=== PATIENT | male | born 1975 | race Caucasian/White ===

== ENCOUNTER → 2017-04-25 | Outpatient (CLI) | payer MEDICAID, SELFPAY | PROVIDERS: Visit Provider Internal Medicine Adolescent Medicine | DX: R55 Syncope and collapse (principal); M79.2 Neuralgia and neuritis, unspecified | CPT/HCPCS: 70551; 72070; 72110 ==

== ENCOUNTER 2017-05-13 15:51 | Outpatient (RCR) | payer MEDICAID, SELFPAY ==
--- NOTE | 2017-05-13 17:14 | HMH.PTOPEV ---
Rehab Outpatient Evaluation Rehab OP Evaluation Start: 05/13/17 16:46 Freq: Status: Active Protocol: Document 05/13/17 16:46 STACIE (Rec: 05/13/17 17:10 STACIE [id number]) Electronically Signed By Jordyn Luis, PT 05/13/17 16:46 Outpatient Therapy Subjective History Subjective History This is a 41 YO male referred to PT due to lumbar & thoracic pain. Pt states he has had pain for many years but he states the pain is getting worse & now his legs are going numb. 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 During this evaluation he C/ O pain also down right UE to hand & neck pain. He states he is falling with increasing frequency Chief Complaint Pain Spasms Stiff Symptom Type Ache Sharp Numbness Symptoms Relieved By Nothing Symptoms Aggravated By Prone Supine Sitting Standing Bending/Stooping Physical Activity Twisting Walking Lifting Current Functional Limitations Reaching Lifting Housework Desk Work/Reading Driving Sleeping Standing Sitting Squatting Recreation Activity Walking Stairs Balance Bending/Stooping Symptom Description Constant but Variable Pain at Rest Activity Dependent Level of pain today (0-10) 5 Pain scale - at its best (0-10) 8 Pain scale - at its worst (0-10) 8 Lumbopelvic Eval Posture Thoracic Spine Posture Standing Position Neutral Lumbar Spine Posture Standing Position Neutral Assistive device Assistive Devices None / NA Gait Observation General Gait Pattern
== END 2017-05-13 17:00 ==
LOC: PT 15:51
PROVIDERS: Family Provider Internal Medicine Adolescent Medicine; Visit Provider Internal Medicine Adolescent Medicine
DX: M54.16 Radiculopathy, lumbar region (principal); M79.2 Neuralgia and neuritis, unspecified

== ENCOUNTER → 2017-07-22 07:34 | Outpatient (CLI) | payer MEDICAID, SELFPAY ==
--- NOTE | 2017-07-22 07:40 | XR_ITS ---
XR shoulder RT min 2V HISTORY: Right shoulder pain ITS.REASON: ROTATOR CUFF SYNDROME ORDERING PHYSICIAN: Rylie Connors PATIENT AGE: 42 years COMPARISON: None FINDINGS: No fracture or dislocation. No lytic or blastic change. There is normal mineralization. The joint spaces are well-preserved. No significant degenerative/arthritic changes. No erosive changes evident. No significant subacromial stenosis IMPRESSION: Negative, no acute finding
== END ==
PROVIDERS: PCP Internal Medicine Adolescent Medicine; Visit Provider Nurse Practitioner Family
DX: M75.101 Unspecified rotator cuff tear or rupture of right shoulder, not specified as traumatic (principal)
CPT/HCPCS: 73030

== ENCOUNTER → 2017-12-08 07:18 | Outpatient (CLI) | payer MEDICAID, SELFPAY ==
[2017-12-08 13:46] LABS: Alanine Aminotransferase 93 U/L (12-78); Albumin/Globulin Ratio 1.3 (1.1-1.8); Alkaline Phosphatase 91 U/L (46-116); Anion Gap 11.1 mEq/L (5-15); Aspartate Amino Transferase 24 U/L (15-37); Bilirubin,Total 0.7 mg/dL (0.2-1.0); Blood Urea Nitrogen 16 mg/dL (7-18); Calcium 9.4 mg/dL (8.5-10.1); Carbon Dioxide 31 mmol/L (21.0-32.0); Chloride 105 mmol/L (98-107); Estimated Glomerular Filt Rate 82 ml/min (>60); GFR (African American) 99 ML/MIN (>60); Globulin 3.1 gm/dl (1.3-3.2); Glucose 123 mg/dL (74-106); Potassium 4.1 mmoL/L (3.5-5.1); Sodium 143 mmol/L (136-145); Total Protein,Serum 7.1 gm/dL (6.4-8.2)
[2017-12-08 13:53] LABS: Hemoglobin A1C 5.4 % (0.0-7.0)
== END ==
PROVIDERS: Visit Provider Internal Medicine Adolescent Medicine
DX: I10 Essential (primary) hypertension (principal); R73.9 Hyperglycemia, unspecified
CPT/HCPCS: 36415; 80053; 83036

== ENCOUNTER → 2018-01-07 07:24 | Outpatient (CLI) | payer MEDICAID, SELFPAY ==
--- NOTE | 2018-01-07 07:48 | MR_ITS ---
MR head/brain wo con HISTORY: Memory loss, imbalance, left arm numbness and tingling ITS.REASON: TIA, NEUROPATHY OF LEFT UPPER EXTREMITY ORDERING PHYSICIAN: Ziggy Cheek MD PATIENT AGE: 42 years Comparison: 04/25/2017 TECHNIQUE: Standard multiplanar multiecho sequences are performed without contrast. FINDINGS: No midline shift, mass effect, intracranial hemorrhage, hydrocephalus, or acute cortical infarction. The cerebellopontine angles, cerebellum, and brainstem are unremarkable. There is mild tortuosity of the left vertebral artery causing some mild deformity upon the left aspect of the brainstem. This is nonspecific and not significantly changed and is of questionable clinical significance. No large aneurysms. There is normal rich-white matter differentiation. There is a small T2 white matter hyperintensity in the subcortical region of the left parietal lobe nonspecific. No other T2 white matter hyperintensities are evident. The hippocampal gyri are unremarkable and the temporal horns are symmetric. Lateral ventricles are slightly prominent but unchanged. No mastoid effusion or sinus air-fluid level. IMPRESSION: 1. No acute intracranial findings. 2. Ectasia of the left vertebral artery causing some mild flattening of the brainstem on the left. This is of uncertain clinical significance. 3. No change in the minimal prominence of the lateral ventricles
== END ==
PROVIDERS: Family Provider Internal Medicine Adolescent Medicine; PCP Internal Medicine Adolescent Medicine; Visit Provider Internal Medicine Adolescent Medicine
DX: G45.9 Transient cerebral ischemic attack, unspecified (principal); G56.92 Unspecified mononeuropathy of left upper limb
CPT/HCPCS: 70551

== ENCOUNTER → 2018-11-17 08:36 | Outpatient (CLI) | payer BC, SELFPAY ==
--- NOTE | 2018-11-17 08:41 | US_ITS ---
US abdomen limited History:Right upper quadrant pain Ordering Physician:Rylie Connors APRN Patient Age: 43 years Comparison:None Findings: Pancreas:Unremarkable. No obvious mass or abnormal fluid collection. No ductal dilatation Liver:Unremarkable. No obvious mass or abnormal fluid collection. No ductal dilatation Right Kidney:Unremarkable. Normal size and echogenicity. No hydronephrosis Gallbladder:No gallstones, gallbladder wall thickening, pericholecystic fluid, or biliary dilatation. Impression:Negative gallbladder/right upper quadrant ultrasound
== END ==
PROVIDERS: PCP Internal Medicine Adolescent Medicine; Visit Provider Nurse Practitioner Family
DX: R10.11 Right upper quadrant pain (principal); R10.811 Right upper quadrant abdominal tenderness
CPT/HCPCS: 76705

== ENCOUNTER 2020-11-20 01:37 | Emergency (ER) | payer BC, SELFPAY ==
[2020-11-20 01:39] VITALS: BP 178/116; PULSE 86; RESP 16; TEMP 36.9; O2SAT 96; BMI 35.5
--- NOTE | 2020-11-20 01:56 | ECG_ITS ---
APPROVED REPORT Exam: Resting ECG HR:69 bpm ECG Measurements Heart Rate 69 AXES IA 126 P 54 QRSd 86 QRS 70 QT 364 T 74 QTc 390 Conclusion Normal sinus rhythm Nonspecific T wave abnormality Abnormal ECG Electronically signed by : Ziggy Cheek, 11/20/2020 22:10:41
--- NOTE | 2020-11-20 01:56 | XR_ITS ---
PROCEDURE INFORMATION: Exam: XR Chest Exam date and time: 11/20/2020 1:56 AM Age: 45 years old Clinical indication: Shortness of breath; Patient HX: SOA and some pain in back TECHNIQUE: Imaging protocol: XR of the chest. Views: 2 views. COMPARISON: CR SHOULDCMRT XR shoulder RT min 2V 07/22/2017 7:41 AM FINDINGS: Lungs: Unremarkable. No consolidation. Pleural spaces: Unremarkable. No pleural effusion. No pneumothorax. Heart/Mediastinum: Unremarkable. No cardiomegaly. Bones/joints: Unremarkable. IMPRESSION: No acute findings.
[2020-11-20 02:00] VITALS: BP 161/104; PULSE 77; RESP 22; O2SAT 96
--- NOTE | 2020-11-20 02:03 | HMH.EDSOB ---
ED Disposition Clinical Impression: Chest pain Qualifiers: Chest pain type: unspecified Qualified Code(s): R07.9 - Chest pain, unspecified HTN (hypertension) Qualifiers: Hypertension type: primary hypertension Qualified Code(s): I10 - Essential (primary) hypertension Disposition: Home, Self-Care Condition on Discharge: Good Instructions: DI for Shortness of Breath Additional Instructions: see pcp for follow up and bp control Referrals: Ziggy Cheek MD [Primary Care Provider] - - Critical Care Critical Care Time: No Attestation: On 11/20/20, the high probability of a clinically significant, sudden or life threatening deterioration of the following system(s) required my full and direct attention, intervention and personal management. The time I documented below is in addition to time spent performing reported procedures but includes the following listed in this critical care notation. Medical Decision Making - Medical Records Medical records reviewed: Yes: I reviewed the patient's medical records. - Abhay Inquiry Pt receiving controlled substance: No Vital Signs: 11/20/20 01:39 Temperature 98.5 F Temperature Source Oral Pulse Rate [Apical] 86 Respiratory Rate 16 Blood Pressure [Right Arm] 178/116 H Blood Pressure Mean [Right Arm] 136 Blood Pressure Source [Right Arm] Manual Cuff/ Auscultation Blood Pressure Position [Right Arm] Sitting 02 Sat by Pulse Oximetry 96 Oxygen Delivery Method Room Air - Lab Data Lab results reviewed: Yes: I reviewed the patient's lab results. Lab Results 11/20/20 01:50: WBC 9.8, RBC 5.37, Hgb 16.4, Hct 46.9, MCV 87.4, MCH 30.5, MCHC 34.9, RDW 13.8, Plt Count 243, MPV 8.8, Neut % (Auto) 61.5, Lymph % (Auto) 30.4, Calloway % (Auto) 5.1, Eos % (Auto) 2.2, Baso % (Auto) 0.8, Neut # (Auto) 6.0, Lymph # (Auto) 3.0, Calloway # (Auto) 0.5, Eos # (Auto) 0.2, Baso # (Auto) 0.1 11/20/20 01:50: Sodium 143, Potassium 3.7, Chloride 104, Carbon Dioxide 29, Anion Gap 13.7, BUN 7 L, Creatinine 0.90, Estimated Creat Clear 146, Estimated GFR 91, Est GFR ( Amer) 110, Glucose 167 H, Calcium 9.2, Total Bilirubin 0.7, Direct Bilirubin 0.5 H, Conjugated Bilirubin 0.0, Indirect Bilirubin 0.2, Unconjugated Bilirubin 0.2, AST 41, ALT 78, Alkaline Phosphatase 87, Troponin I < 0.01, C-Reactive Protein 5.3 H, Total Protein 7.7, Albumin 4.6 11/20/20 01:50: ESR 7 11/20/20 01:50: Procalcitonin 0.172 Result diagrams: 11/20/20 01:50 11/20/20 01:50 Orders (Tests/Meds): ED MEDICATIONS Generic Name Dose Route Start Last Admin Trade Name Freq PRN Reason Stop Dose Admin Sodium Chloride 1,000 mls @ 999 mls/hr 11/20/20 02:00 11/20/20 02:06 Sod Chlor 0.9% 1000ml Bag IV 11/20/20 03:00 999 mls/hr .Q1H1M KAMILA Administration Discontinued Medications Generic Name Dose Route Start Last Admin Trade Name Freq PRN Reason Stop Dose Admin Ketorolac Tromethamine 30 mg 11/20/20 01:56 11/20/20 02:05 Ketorolac 30mg/Ml Vial IV 11/20/20 01:57 30 mg ONCE ONE Administration Methylprednisolone Sodium Succinate 125 mg 11/20/20 01:56 11/20/20 02:06 Methylprednisolone Sod Succ 125mg Vial IV 11/20/20 01:57 125 mg ONCE ONE Administration ORDERS Category Date Time Status Troponin I Q3H Lab 11/20/20 05:00 Ordered Troponin I Q3H Lab 11/20/20 08:00 Ordered - Radiology Data #1 Image(s): Chest Image Reviewed: Yes I reviewed the patient's radiology image Preliminary Findings: Normal/NAD - ECG Data Tracing #1 Normal Sinus Rhythm: Yes Ischemic changes: non-specific ST-T wave changes - KEILA Score for Non-Stemi Age of Patient: 40-49 years old Heart Rate: 70-89 bpm Systolic Blood Pressure: 160-199 mmHg Serum Creatinine: 0.80-1.19 mg/dl CHF Killip Class: I-No CHF Other Risk Factors: None Non-Stemi Risk Score: 51 Medical Decision Narrative: pt with neg work-up at this time - has lt upper pain - after iv contrast - has htn but off meds we discussed need to see
--- NOTE | 2020-11-20 02:04 | PC.NURSE ---
Pt to rad
[2020-11-20 02:07] LABS: Basophils # 0.1 K/mm3 (0-0.2); Basophils % 0.8 % (0.1-2.0); Eosinophils # 0.2 K/mm3 (0.0-0.4); Eosinophils % 2.2 % (0.1-12.0); Hematocrit 46.9 % (42.0-52.0); Hemoglobin 16.4 g/dL (14.1-18.0); Lymphocytes % 30.4 % (10-50); Mean Corpuscular HGB Conc 34.9 g/dL (31.8-35.4); Mean Corpuscular Hemoglobin 30.5 pg (27.0-31.2); Mean Corpuscular Volume 87.4 fl (80-94); Mean Platelet Volume 8.8 fl (7.4-10.4); Monocytes # 0.5 K/mm3 (0.1-1.0); Monocytes % 5.1 % (1.7-9.3); Neutrophils % 61.5 % (37.0-80.0); Platelet Count 243 K/mm3 (142-424); Red Blood Count 5.37 M/mm3 (4.60-6.20); Red Cell Distribution Width 13.8 % (11.5-17.5); White Blood Count 9.8 K/mm3 (4.8-10.8)
--- NOTE | 2020-11-20 02:08 | PC.NURSE ---
Pt returned from rad
[2020-11-20 02:15] LABS: Alanine Aminotransferase 78 U/L (12-78); Anion Gap 13.7 mEq/L (5-15); Aspartate Amino Transferase 41 U/L (17-59); Bilirubin,Direct 0.5 mg/dl (0.0-0.4); Bilirubin,Indirect 0.2 mg/dL (0.0-0.9); Bilirubin,Total 0.7 mg/dl (0.2-1.3); Bilirubin,Unconjugated 0.2 mg/dL (0.0-1.1); Blood Urea Nitrogen 7 mg/dl (9-20); Calcium 9.2 mg/dl (8.4-10.2); Carbon Dioxide 29 mmol/L (22.0-30.0); Chloride 104 mmol/L (98-107); Creatinine Clearance Estimated 146 mL/min (50-200); Estimated Glomerular Filt Rate 91 ml/min (>60); GFR (African American) 110 ML/MIN (>60); Glucose 167 mg/dl (74-100); Potassium 3.7 mmoL/L (3.5-5.1); Sodium 143 mmol/L (136-145)
[2020-11-20 02:16] LABS: Albumin Level 4.6 g/dl (3.5-5.0); Alkaline Phosphatase 87 U/L (38-126); Total Protein,Serum 7.7 g/dl (6.3-8.2)
[2020-11-20 02:21] LABS: C-Reactive Protein 5.3 mg/L (0-4)
--- NOTE | 2020-11-20 02:25 | PC.NURSE ---
Pt to rad
[2020-11-20 02:30] LABS: Troponin I < 0.01 ng/ml (0.00-0.034)
[2020-11-20 02:35] LABS: Procalcitonin 0.172 ng/mL (0.0-2.0)
[2020-11-20 02:38] LABS: Erythrocyte Sedimentation Rate 7 mm/hr (0-15)
--- NOTE | 2020-11-20 02:44 | PC.NURSE ---
Radiology contacted ER to request new IV on pt. This RN went to assess LAC PIV and found it to flush well, although tender to palpation surrounding insertion site. No redness or cooling above the site. Pt refused to be stuck again for new IV. Pt made aware reason for CTA and that we needed IV access for this scan to r/o PE's. Pt demanded this RN remove LAC IV. He was instructed he could not receive IV medication if needed. Pt stated his understanding. LAC PIV was removed.
[2020-11-20 03:14] VITALS: BP 171/100; PULSE 81; RESP 18; TEMP 36.7; O2SAT 98
== END 2020-11-20 03:19 | disposition home or self-care (01) ==
PROVIDERS: Emergency Provider Emergency Medicine; PCP Internal Medicine Adolescent Medicine
DX: R07.9 Chest pain, unspecified (principal); I10 Essential (primary) hypertension; K21.9 Gastro-esophageal reflux disease without esophagitis; Z79.899 Other long term (current) drug therapy
CPT/HCPCS: 71046; 80048; 80076; 84145; 84484; 85025; 85651; 86140; 93005; 96365; 96375; 99283

== ENCOUNTER 2021-07-06 13:20 | Emergency (ER) | payer BC, SELFPAY ==
[2021-07-06 13:25] VITALS: BP 166/111; PULSE 93; RESP 18; TEMP 36.4; O2SAT 97; BMI 35.3
--- NOTE | 2021-07-06 13:48 | HMH.EDUTC ---
[facility] [place] Disposition Clinical Impression: HTN (hypertension) Qualifiers: Hypertension type: unspecified Qualified Code(s): I10 - Essential (primary) hypertension Disposition: Left Against Medical Advice Condition on Discharge: Fair Referrals: Provider,Referral, [Primary Care Provider] - As needed Time of Disposition: 14:02 Medical Decision Making - Abhay Inquiry Pt receiving controlled substance: No Abhay was queried for this patient: No Vital Signs: 07/06/21 13:25 Temperature 97.5 F L Temperature Source Oral Pulse Rate [Left Brachial] 93 H Respiratory Rate 18 Blood Pressure [Left Arm] 166/111 H Blood Pressure Mean [Left Arm] 129 Blood Pressure Source [Left Arm] Automatic Cuff Blood Pressure Position [Left Arm] Sitting 02 Sat by Pulse Oximetry 97 Oxygen Delivery Method Room Air Medical Decision Narrative: Due to patient complaints and blood pressure being elevated with symptoms and reports of disorientation at times recommended transfer to the ED for further evaluation and treatment and patient refused transfer, discussed risks even with patient and he still refused patient educated that due to symptoms he was having along with elevated blood pressure he could have a stroke even and patient still refused Patient alert and oriented at this time states he will go to his PCP and sit in the office to be seen patient educated that will blood pressure elevated like it is with symptoms may still recommended transfer and he still declined transfer Spoke with Cardiology Clinic and they advised to send patient to the clinic and they would evaluate him and patient refused that also State that he would call Dr Sr office and go up there he did not want to go to the clinic or the ED he would just leave and sign out AMA [facility] [place] HPI - General Stated complaint: elevated BP, dizziness, RICHARDS Time Seen by Provider: 07/06/21 13:48 Mode of Arrival: Ambulatory Source of Information: Patient Limitations: No Limitations Description of Symptoms (Recalled from Triage Doc. by RN): PATIENT REPORTS THAT HIS BLOOD PRESSURE HAS BEEN ELEVATED AT HOME, AND HAS BEEN HAVING DIZZINESS, HEADACHE, AND OCCASIONAL DISORIENTATION. DENIES A HISTORY OF HYPERTENSION HEENT Symptoms (Recalled from RN notes): No Resp Symptoms (Recalled from RN notes): No Skin Symptoms (Recalled from RN notes): No MS Symptoms (Recalled from RN notes): No Functional Status (Recalled from RN notes): WNL - History of Present Illness Provider Complaint: Patient state that he has been having blood pressure problems States that he has been watching it at home and it has been elevated States that he has been having headache, dizziness and blurry vision at times along with episodes of feeling disoriented State that today it was still elevated and he was having symptoms so he came in - Related Data Home Medications Medication Instructions Recorded Confirmed pantoprazole 20 mg tablet,delayed 20 mg PO ONCE 12/03/17 07/06/18 release Allergies Allergy/AdvReac Type Severity Reaction Status Date / Time No Known Allergies Allergy Verified 07/06/18 15:42 - Worker's Comp Is this a Worker's Comp case?: No [facility] History - Hepatitis A Screen Drug use history?: No High risk sexual behaviors?: No History of sexually transmitted infection?: No Currently employed?: No Childcare worker?: No Do you have indoor plumbing?: Yes Do you have electricity?: Yes Attestation statement:: This patient has been screened for Hepatitis A risk factors. I have reviewed the patient's past medical history: Yes Medical History: Reports:: Gastroesophageal Reflux Disease(GERD) Amputation: No Comment: rotator cuff (left), 2 hernia repair surgeries - Social History Smoking Status: Never smoker Alcohol Intake: never Occupational Status: employed Housing: house Household Members: family Family Hx:: Cancer, Diabetes ROS Obtained: Yes All systems reviewed & no additional complai
[2021-07-06 13:50] VITALS: BP 166/111; PULSE 93; RESP 18; TEMP 36.4; O2SAT 97
== END 2021-07-06 13:53 | disposition left against medical advice (07) ==
LOC: UTC 13:21
PROVIDERS: Emergency Provider Nurse Practitioner
DX: R42 Dizziness and giddiness; I10 Essential (primary) hypertension; H53.8 Other visual disturbances; R51.9 Headache, unspecified; K21.9 Gastro-esophageal reflux disease without esophagitis; Z83.3 Family history of diabetes mellitus; Z79.899 Other long term (current) drug therapy; Z80.9 Family history of malignant neoplasm, unspecified
CPT/HCPCS: 99213; G0463

== ENCOUNTER → 2022-01-10 06:17 | Outpatient (CLI) | payer BC, SELFPAY ==
[2022-01-10 18:39] LABS: Basophils # 0.1 K/mm3 (0-0.2); Basophils % 0.7 % (0.1-2.0); Eosinophils # 0.4 K/mm3 (0.0-0.4); Hematocrit 45.4 % (42.0-52.0); Hemoglobin 15.7 g/dL (14.1-18.0); Lymphocytes # 2.6 K/mm3 (0.7-4.5); Lymphocytes % 23.7 % (10-50); Mean Corpuscular HGB Conc 34.7 g/dL (31.8-35.4); Mean Corpuscular Hemoglobin 31.5 pg (27.0-31.2); Mean Corpuscular Volume 90.8 fl (80-94); Monocytes # 0.7 K/mm3 (0.1-1.0); Monocytes % 6.1 % (1.7-9.3); Neutrophils % 65.4 % (37.0-80.0); Platelet Count 336 K/mm3 (142-424); Red Cell Distribution Width 13.1 % (11.5-17.5); White Blood Count 10.7 K/mm3 (4.8-10.8)
[2022-01-10 18:42] LABS: Blood Urea Nitrogen 16 mg/dl (9-20); Calcium 9.4 mg/dl (8.4-10.2); Carbon Dioxide 28 mmol/L (22.0-30.0); Estimated Glomerular Filt Rate 91 ml/min (>60); GFR (African American) 110 ML/MIN (>60); Glucose 95 mg/dl (74-100); Sodium 140 mmol/L (136-145)
[2022-01-10 18:47] LABS: Chloride 102 mmol/L (98-107)
== END ==
PROVIDERS: PCP Internal Medicine Adolescent Medicine; Visit Provider Internal Medicine Adolescent Medicine
DX: R55 Syncope and collapse (principal); K62.5 Hemorrhage of anus and rectum
CPT/HCPCS: 80048; 85025

== ENCOUNTER → 2022-01-16 08:41 | Outpatient (CLI) | payer BC, SELFPAY ==
[2022-01-16 10:18] LABS: Hemoglobin A1C 6.4 % (4.0-6.0)
[2022-01-16 10:29] LABS: Chloride 106 mmol/L (98-107); Potassium 4.6 mmoL/L (3.5-5.1); Sodium 142 mmol/L (136-145)
[2022-01-16 10:32] LABS: Alanine Aminotransferase 63 U/L (12-78); Albumin Level 4.6 g/dl (3.5-5.0); Albumin/Globulin Ratio 1.7 (1.1-1.8); Alkaline Phosphatase 76 U/L (38-126); Anion Gap 12.6 mEq/L (5-15); Aspartate Amino Transferase 48 U/L (17-59); Bilirubin,Total 0.7 mg/dl (0.2-1.3); Blood Urea Nitrogen 15 mg/dl (9-20); Calcium 8.9 mg/dl (8.4-10.2); Carbon Dioxide 28 mmol/L (22.0-30.0); Estimated Glomerular Filt Rate 91 ml/min (>60); GFR (African American) 110 ML/MIN (>60); Globulin 2.7 g/dL (1.3-3.2); Glucose 109 mg/dl (74-100); Total Protein,Serum 7.3 g/dl (6.3-8.2)
== END ==
PROVIDERS: PCP Internal Medicine Adolescent Medicine; Visit Provider Internal Medicine Adolescent Medicine
DX: E11.9 Type 2 diabetes mellitus without complications (principal); K76.0 Fatty (change of) liver, not elsewhere classified; Z79.84 Long term (current) use of oral hypoglycemic drugs
CPT/HCPCS: 36415; 80053; 83036

== ENCOUNTER → 2022-02-04 09:28 | Outpatient (CLI) | payer BC, SELFPAY | PROVIDERS: PCP Internal Medicine Adolescent Medicine; Visit Provider Internal Medicine | DX: Z01.818 Encounter for other preprocedural examination (principal); Z20.822 Contact with and (suspected) exposure to COVID-19; Z12.11 Encounter for screening for malignant neoplasm of colon | CPT/HCPCS: C9803; U0003; U0005 ==

== ENCOUNTER 2022-02-06 08:42 | Day surgery (SDC) | payer BC, SELFPAY ==
[2022-02-04 10:54] VITALS: BMI 34.5
[2022-02-06 09:05] VITALS: BP 147/92; PULSE 73; RESP 18; TEMP 36.2; O2SAT 97
--- NOTE | 2022-02-06 09:24 | P.PN_ITS ---
[facility] Medical History Gauthier esophagus Diabetes mellitus Diabetes mellitus, type 2 Enlarged prostate Hemorrhoid History of back pain History of gastroesophageal reflux (GERD) HTN (hypertension) Hyperlipidemia Normal colonoscopy Scarring of lung Surgical History H/O hernia repair S/P shoulder surgery Family History Father Diabetes Hyperlipidemia Cancer Hypertension Grandfather Family history of prostate cancer Mother Family history of breast cancer Family/Other Family history of breast cancer Social History Smoking Status: Never smoker second hand exposure: No alcohol intake: never substance use type: denies use current occupational status: employed Travel in the last 8 weeks: None household members: family housing: house marital status: [facility] Anesthesia Checklist Patient Identification Patient Identification: Arm Band and Verbal (Name & ) Structural Data Admitted From: Home Planned Operative Procedure/s: Colonoscopy Consent for Planned Operative Procedure(s) Verified: Yes NPO Status Verified Time NPO: 06:30 (Prep) Chart Verification Results Verified: CBC and BMP Airway Assessment C-Spine Mobility Assessed: Yes TMJ Mobility Assessed: Yes Dentition: Good Dentition Neurological Assessment Level of Consciousness: Awake Hx Seizures: No Numbness or tingling in extremities: No Anesthesia Plan Anesthesia Risk discussed: Yes Anesthesia Plan: Verified ASA Class: III Anesthesia Type: MAC
[2022-02-06 09:25] LABS: POC Glucose,Bedside 96 (70-110)
[2022-02-06 10:22] VITALS: O2SAT 97
--- NOTE | 2022-02-06 10:55 | HMH.SCOPE ---
Procedure: Date: 02/06/22 Patient Date of :: 1975 Procedure Performed:: Colonoscopy Indications:: The patient is a 46 year old who presents for colonoscopy for a positive cologaurd test Performing Provider:: Gary Benitez MD Referring Provider:: Ziggy Cheek MD Sedation:: See RN records Procedure:: After placing the patient in the left lateral decubitus position, the colonoscopy was gently inserted into the rectum and under direct visualization advanced to the cecum which was identified by transillumination in the right lower quadrant, identification of the ileocecal valve, appendiceal orifice, and cecal strap. Color, texture, mucosa, and anatomy of the colon were carefully examined with the scope. Findings:: Anal canal: normal Rectum: Internal hemorrhoids Sigmoid colon: Sessile polyp 5 mm in size. Removed with cold snare polypectomy. Fair preparation Descending colon: Three polyps between 5-8 mm in size. Removed with cold snrae polypectomy. Fair preparation Splenic flexure: normal Transverse colon: normal without polyps or inflammatory changes Hepatic flexure: normal Ascending colon: Sessile polyp 7-8 mm in size. Removed with cold snare polypectomy Cecum: Diffusely spreading adenomatous appearing polyp lesion approximately 2 cm in size. Biopsies obtained Terminal ileum: not visualized Impression: Multiple polyps Diffusely spread adenomatous appearing polyp of the cecum Recommendations:: Await pathology results Will discuss surgical evaluation vs referral to advanced endoscopist for larger ceal polyp Complications:: None Estimated blood obtained (mL): 0
[2022-02-06 10:58] VITALS: BP 116/64; PULSE 91; RESP 17; TEMP 36.1; O2SAT 94
[2022-02-06 11:08] VITALS: BP 111/62; PULSE 78; RESP 18; O2SAT 95
[2022-02-06 11:18] VITALS: BP 110/68; PULSE 73; RESP 17; O2SAT 97
[2022-02-06 11:28] VITALS: BP 117/67; PULSE 72; RESP 18; O2SAT 98
== END 2022-02-06 11:28 | disposition home or self-care (01) ==
PROVIDERS: PCP Internal Medicine Adolescent Medicine; Visit Provider Internal Medicine
PROC: 0DJD8ZZ Inspection of Lower Intestinal Tract, Via Natural or Artificial Opening Endoscopic (ICD-10-PCS; CPT 45378; principal; 2022-02-06 10:00)
DX: R19.5 Other fecal abnormalities (principal); K63.5 Polyp of colon; Z79.899 Other long term (current) drug therapy; E11.9 Type 2 diabetes mellitus without complications
CPT/HCPCS: 45385; 45380; 82962; 88305; J2704

== ENCOUNTER → 2022-03-13 10:24 | Outpatient (CLI) | payer BC, SELFPAY ==
--- NOTE | 2022-03-13 10:28 | FL_ITS ---
FINAL REPORT CLINICAL HISTORY: dysphagia 50 second fluoro time FINDINGS: MODIFIED BARIUM SWALLOW History: Dysphagia. FINDINGS: Fluoroscopy was provided for the speech pathologist to evaluate the swallowing mechanism. The patient was given several different consistencies of barium while the swallow was visualized fluoroscopically. The report of the speech pathologist should be consulted prior to making dietary decisions. FLUOROSCOPY TIME: 50 seconds. 10 cine runs were obtained. IMPRESSION: Modified barium swallow under fluoroscopic guidance. Please see the report of the speech pathologist for more detail. Films reviewed , interpreted and dictated by Dr. Esquivel. Transcribed by Damien Roy PA-C. Reviewed, Interpreted and Dictated by Guilherme Esquivel MD Transcribed by RAE Weaver Authenticated and . [facility]
--- NOTE | 2022-03-13 11:24 | HMH.SLMBS2 ---
Speech & Language Evaluation Speech/Language Mod Barium Swallow Start: 03/13/22 11:04 Freq: once Status: Complete Protocol: Document 03/13/22 11:04 PHOENIXISIDOR (Rec: 03/13/22 11:24 DILIA [id number]) General Information General Current Food Consistency Regular,Thin Liquids Dentition Good Dentition Oxygen Status Room Air Facial Symmetry Symmetrical Patient Orientation Person,Place,Time,Situation Ability to Follow Directions Excellent Communication Ability No Impairment MBS Recommendations Diet Dietary Recommendations Regular,Thin Liquids Treatment/Strategies Strategy/Precaution Recommend Sitting Upright (90 deg),Small Bites and Sips,Alternate Liquids/Solids Referrals/Other Recommended Referrals GI Consult Mod Barium Swallow Impressions Summary and Impressions Oral Phase Impression No Impairment (WFL) Oral Phase Summary Oral phase is WFL. Adequate mastication of all solid consistencies, and adequate oral manipulation of puree. Functional oral transit time. No oral residue was noted with any consistency trialed. Pharyngeal Phase Impression No Impairment (WFL) Pharyngeal Phase Summary Pharyngeal phase is WFL. No aspiration or penetration was noted with any consistency trialed. Swallow was timely with no significant pharyngeal residue, despite pt reporting mechanical soft feeling like it was stuck. Sensation improved with thin liquid wash . Pharyngeal structures are all WNL. No pharyngeal weakness noted. Given hx of Gauthier's esophagus, pt would benefit from GI consult to determine if esophageal dysphagia is present lower in the esophagus. To increase comfort and decrease sensation of material sticking, pt would benefit from alternating bites and sips as well as taking small bites and sips. Speech/Language MBS Assessment/Goals/Plan Assessment Date of Evaluation: 03/13/22 Evaluation Type Initial Certification Assessment/Problems
== END ==
LOC: RAD 10:24
PROVIDERS: PCP Internal Medicine Adolescent Medicine; Visit Provider Internal Medicine Adolescent Medicine
DX: R13.13 Dysphagia, pharyngeal phase (principal)
CPT/HCPCS: 70371; 92611

== ENCOUNTER → 2022-03-22 10:46 | Outpatient (CLI) | payer BC, SELFPAY ==
--- NOTE | 2022-03-22 10:49 | XR_ITS ---
FINAL REPORT TECHNIQUE: Chest PA & Lateral CLINICAL HISTORY: TUBULAR ADENOMA OF COLON, pre op, htn COMPARISON: 11/20/2020 FINDINGS: 2 views of the chest were performed. The heart size is normal. The mediastinum is within normal limits. There is no acute cardiopulmonary process. There are no pleural effusions. There is no pneumothorax. The bony thorax appears intact. IMPRESSION: No acute cardiopulmonary process. Reviewed, Interpreted and Dictated by Guilherme Esquivel MD Transcribed by Sera Pruitt Authenticated and [facility]
--- NOTE | 2022-03-22 10:49 | CT_ITS ---
FINAL REPORT CLINICAL HISTORY: TUBULAR ADENOMA OF COLON. FINDINGS: The lung bases are clear. The liver is moderately fatty infiltrated. The gallbladder is present. The spleen is unremarkable. The adrenals are normal. The pancreas is unremarkable. The kidneys enhance appropriately. Precontrast images demonstrate no nephrolithiasis. There is abnormal mucosal thickening of the distal sigmoid colon and rectum which may be due to infectious or inflammatory colitis. The urinary bladder is unremarkable. IMPRESSION: Abnormal mucosal thickening of the distal sigmoid colon and rectum may be due to colitis. This may be infectious or inflammatory. Reviewed, Interpreted and Dictated by Guilherme Esquivel MD Transcribed by RAE Miller Authenticated and [facility]
[2022-03-22 11:42] LABS: Blood Urea Nitrogen 13 mg/dl (9-20); Estimated Glomerular Filt Rate 72 ml/min (>60); GFR (African American) 87 ML/MIN (>60)
== END ==
LOC: RAD 10:46
PROVIDERS: PCP Internal Medicine Adolescent Medicine; Visit Provider Internal Medicine Adolescent Medicine
DX: D12.6 Benign neoplasm of colon, unspecified (principal)
CPT/HCPCS: 36415; 71046; 74178; 82565; 84520; Q9967

== ENCOUNTER → 2022-03-29 08:21 | Outpatient (CLI) | payer BC, SELFPAY | PROVIDERS: PCP Internal Medicine Adolescent Medicine; Visit Provider Surgery | DX: Z01.812 Encounter for preprocedural laboratory examination (principal); Z20.822 Contact with and (suspected) exposure to COVID-19 | CPT/HCPCS: C9803; U0003; U0005 ==

== ENCOUNTER 2022-05-16 09:30 | Day surgery (SDC) | payer BC, SELFPAY ==
[2022-05-16] VITALS (7 sets, daily range): BP systolic 118–137; BP diastolic 65–92; PULSE 84–101; RESP 16–18; TEMP 36.2–36.3; O2SAT 95–99; BMI 35.2
[2022-05-16 09:56] LABS: POC Glucose,Bedside 132 (70-110)
--- NOTE | 2022-05-16 10:46 | HMH.SCOPE ---
Procedure: Date: 05/16/22 Patient Date of :: 1975 Procedure Performed:: EGD & biopsies with bougie dilation Indications:: History of Barretts esophagus and dysphagia symptoms Performing Provider:: Rubi Mcdaniel MD Referring Provider:: Ziggy Cheek Sedation:: Propofol Procedure:: The gastroscope was gently passed through the incisoral orifice into the oral cavity and under direct visualization the esophagus was intubated. The endoscope was passed down the esophagus, through the stomach, and into the duodenum. Color, texture, mucosa, and anatomy of the esophagus, stomach, and duodenum were carefully examined with the scope. Findings:: Oropharynx: normal Esophagus: normal with evidence of barretts mucosa seen in distal esophagus without inflammatory changes. multiple biopsies obtained dysphagia treated with several passes of the 58F bougie dilator EG Junction: intact at 40 cm Cardia: normal Fundus: normal Body: normal Antrum: normal Duodenal bulb: normal Duodenum (second and third portion): normal Impression: Gauthier's mucosa Symptomatic dysphagia treated with bougie dilation Specimens:: esophagus Recommendations:: repeat EGD and biopsies in about THREE years or so, sooner if clinically indicated Complications:: None Estimated blood obtained (mL): 0
--- NOTE | 2022-05-16 10:50 | EXP.ANES.CKL ---
[facility] Disclaimer: The information contained in this section may have been updated after the patient was seen, as this information can be updated by other users. Medical History Gauthier esophagus Diabetes mellitus Diabetes mellitus, type 2 Enlarged prostate Hemorrhoid History of back pain History of gastroesophageal reflux (GERD) HTN (hypertension) Hyperlipidemia Normal colonoscopy Scarring of lung Surgical History H/O hernia repair S/P shoulder surgery Family History Father Diabetes Hyperlipidemia Cancer Hypertension Grandfather Family history of prostate cancer Mother Family history of breast cancer Family/Other Family history of breast cancer Social History Smoking Status: Never smoker second hand exposure: No alcohol intake: never substance use type: denies use current occupational status: employed Travel in the last 8 weeks: None household members: family housing: house lives independently: Yes marital status: special robin needs: No agree to transfusion: No do you feel safe at home: Yes victim of physical abuse: No victim of emotional abuse: No victim of sexual abuse: No would you like helpful sources: No [facility] Anesthesia Checklist Patient Identification Patient Identification: Verbal (Name & ) Structural Data Admitted From: Home Planned Operative Procedure/s: egd Consent for Planned Operative Procedure(s) Verified: Yes Airway Assessment C-Spine Mobility Assessed: Yes TMJ Mobility Assessed: Yes Dentition: Good Dentition Neurological Assessment Level of Consciousness: Awake, Alert and Appropriate Anesthesia Plan Anesthesia Risk discussed: Yes Anesthesia Plan: Verified ASA Class: II Anesthesia Type: MAC
== END 2022-05-16 11:35 | disposition home or self-care (01) ==
PROVIDERS: PCP Internal Medicine Adolescent Medicine; Visit Provider Internal Medicine Gastroenterology
PROC: 0DJ08ZZ Inspection of Upper Intestinal Tract, Via Natural or Artificial Opening Endoscopic (ICD-10-PCS; CPT 43235; principal; 2022-05-16 11:00)
DX: K22.70 Barrett's esophagus without dysplasia (principal); R13.10 Dysphagia, unspecified; E11.9 Type 2 diabetes mellitus without complications; Z79.899 Other long term (current) drug therapy
CPT/HCPCS: 43239; 43248; 82962; 88305

== ENCOUNTER 2022-11-11 08:34 | Emergency (ER) | payer BC, SELFPAY ==
[2022-11-11 08:37] VITALS: BP 167/110; PULSE 77; RESP 18; TEMP 37; O2SAT 99; BMI 34.7
--- NOTE | 2022-11-11 08:47 | EXP.UTC ---
Discharge Plan Disposition Patient Disposition: Home, Self-Care Prescriptions Prescriptions: No Action metformin 500 mg tablet 500 mg PO BID atorvastatin 10 mg tablet 10 mg PO DAILY lisinopril 10 mg tablet 10 mg PO DAILY pantoprazole [Protonix] 40 mg Tablet,Delayed Release (Dr/Ec) 40 mg PO DAILY Referrals Follow up/Referrals: Ziggy Cheek MD [Primary Care Provider] - See instructions Activity Restrictions/Add. Instructions Additional Instructions/Restrictions: Follow-up with Dr. Dorantes this week. Otherwise return the emergency department for any worsening pain vomiting or any other concerns within the next 8 hours Clinical Impressions Clinical Impression: Abdominal pain, acute, right upper quadrant Instructions Patient Instructions: DI for Acute Abdominal Pain Discharge ED Provider: Sascha Elmore [facility] [place] <Jens Juarez APRN - Last Filed: 11/21/22 20:10> General Chief complaint: Abdominal Pain Stated complaint: Sharp pain on right side, headaches Time Seen by Provider: 11/11/22 08:47 Related Data Home Medications Medication Instructions Recorded Confirmed atorvastatin 10 mg tablet 10 mg PO DAILY Cholesterol 01/10/22 05/16/22 metformin 500 mg tablet 500 mg PO BID Diabetes 01/10/22 05/10/22 lisinopril 10 mg tablet 10 mg PO DAILY BP 02/04/22 05/16/22 pantoprazole 40 mg tablet,delayed 40 mg PO DAILY GERD 05/16/22 05/16/22 release (Protonix) Allergies Allergy/AdvReac Type Severity Reaction Status Date / Time No Known Allergies Allergy Verified 05/16/22 09:46 <Sascha Elmore MD - Last Filed: 11/11/22 10:55> History of Present Illness Provider Complaint: 47-year-old male presents with right upper quadrant pain. He is in no acute distress nontoxic-appearing he presented initially to the urgent care side of [facility] and then was transferred over to the emergency department side. On my exam he has mild tenderness no nausea vomiting diarrhea fevers chest pain shortness of air. Has been going on for a few hours dull pain nonradiating [facility] <Jens Juarez APRN - Last Filed: 11/21/22 20:10> [facility] Disclaimer: The information contained in this section may have been updated after the patient was seen, as this information can be updated by other users. Medical History Gauthier esophagus Diabetes mellitus Diabetes mellitus, type 2 Enlarged prostate Hemorrhoid History of back pain History of gastroesophageal reflux (GERD) HTN (hypertension) Hyperlipidemia Normal colonoscopy Scarring of lung Surgical History H/O hernia repair S/P shoulder surgery Family History Father Diabetes Hyperlipidemia Cancer Hypertension Grandfather Family history of prostate cancer Mother Family history of breast cancer Family/Other Family history of breast cancer Social History Smoking Status: Never smoker second hand exposure: No alcohol intake: never substance use type: denies use current occupational status: employed Travel in the last 8 weeks: None household members: family housing: house lives independently: Yes marital status: special robin needs: No agree to transfusion: No do you feel safe at home: Yes victim of physical abuse: No victim of emotional abuse: No victim of sexual abuse: No would you like helpful sources: No <Sascha Elmore MD - Last Filed: 11/11/22 10:55> ROS Obtained: Yes All systems reviewed & no additional complaints except as documented Constitutional Constitutional: Denies fatigue, Denies fever(s) and Denies headache(s) Eyes Eyes: Denies floaters ENT Ears, Nose, Mouth, and Throat: Denies headache(s) and Denies hearing loss Cardiovascular Cardiovascular: Denies dyspnea Respiratory Resp
[2022-11-11 09:27] LABS: Microscopic, Urine URINE MICROSCOPIC (MICROSCOPIC)
[2022-11-11 09:45] VITALS: BP 167/108; PULSE 70; RESP 18; TEMP 36.7; O2SAT 98; BMI 34.7
[2022-11-11 09:48] LABS: Appearance,Urine CLEAR (Clear); Bilirubin,Urine Negative (Negative); Blood, Urine Negative (Negative); Color,Urine YELLOW (Yellow); Glucose,Urine (UA) Negative (Negative); Ketones,Urine Negative (Negative); Leukocyte Esterase,Urine Negative (Negative); Nitrate,Urine Negative (Negative); PH,Urine 7.5 (5.0-8.5); Protein,Urine Negative (Negative); Urobilinogen,Urine 0.2 EU/dl (0.2)
--- NOTE | 2022-11-11 09:51 | PC.NURSE ---
DR. MEJIA AT BEDSIDE
--- NOTE | 2022-11-11 09:53 | US_ITS ---
FINAL REPORT CLINICAL HISTORY: RUQ pain COMPARISON: None FINDINGS: Sonographic images of the right upper quadrant were obtained. The pancreas is partially obscured. There is increased echogenicity of the liver parenchyma, compatible with fatty infiltration of the liver. The gallbladder appears normal without evidence of gallstones.There is no evidence of biliary ductal dilatation.The common duct measures 2 mm. Limited images of the right kidney are unremarkable. IMPRESSION: Fatty infiltration of the liver. Otherwise unremarkable right upper quadrant ultrasound. Reviewed, Interpreted and Dictated by Brooks Moscoso III, MD Transcribed by Carole Mallory Authenticated and [facility][1]
[2022-11-11 10:00] VITALS: BP 167/98; PULSE 70; RESP 18; O2SAT 98
[2022-11-11 10:13] LABS: Basophils % 0.4 % (0.1-2.0); Eosinophils # 0.1 K/mm3 (0.0-0.4); Eosinophils % 1.4 % (0.1-12.0); Hematocrit 49.3 % (42.0-52.0); Hemoglobin 16.3 g/dL (14.1-18.0); Lymphocytes # 2.5 K/mm3 (0.7-4.5); Lymphocytes % 24.3 % (10-50); Mean Corpuscular Hemoglobin 29.2 pg (27.0-31.2); Mean Corpuscular Volume 88.5 fl (80-94); Mean Platelet Volume 9.6 fl (7.4-10.4); Monocytes # 0.5 K/mm3 (0.1-1.0); Monocytes % 4.5 % (1.7-9.3); Neutrophils # 7.2 K/mm3 (1.8-7.8); Neutrophils % 69.4 % (37.0-80.0); Platelet Count 222 K/mm3 (142-424); Red Blood Count 5.57 M/mm3 (4.60-6.20); Red Cell Distribution Width 13.5 % (11.5-17.5); White Blood Count 10.4 K/mm3 (4.8-10.8)
[2022-11-11 10:35] LABS: Alanine Aminotransferase 58 U/L (12-78); Albumin Level 4.8 g/dl (3.5-5.0); Albumin/Globulin Ratio 1.5 (1.1-1.8); Alkaline Phosphatase 83 U/L (38-126); Anion Gap 10.5 mEq/L (5-15); Aspartate Amino Transferase 50 U/L (17-59); Bilirubin,Total 0.9 mg/dl (0.2-1.3); Blood Urea Nitrogen 10 mg/dl (9-20); Calcium 9.6 mg/dl (8.4-10.2); Carbon Dioxide 31 mmol/L (22.0-30.0); Chloride 105 mmol/L (98-107); Creatinine Clearance Estimated 140 mL/min (50-200); Estimated Glomerular Filt Rate 90 ml/min (>60); GFR (African American) 109 ML/MIN (>60); Globulin 3.1 g/dL (1.3-3.2); Glucose 133 mg/dl (74-100); Lipase 77 U/L (23-300); Potassium 4.5 mmoL/L (3.5-5.1); Sodium 142 mmol/L (136-145); Total Protein,Serum 7.9 g/dl (6.3-8.2)
--- NOTE | 2022-11-11 10:48 | PC.NURSE ---
pt returned from rad.
--- NOTE | 2022-11-11 10:49 | PC.NURSE ---
PT RETURNED FROM US
--- NOTE | 2022-11-11 10:51 | PC.NURSE ---
DR MEJIA AT BEDSIDE TO UPDATE PT ON POC
[2022-11-11 11:00] VITALS: BP 151/91; PULSE 70; RESP 18; TEMP 36.7; O2SAT 98
[2022-11-11 12:04] LABS: Squamous Epithelial Cell,Urine Occasional #/hpf (0-5); WBC,Urine Occasional #/hpf (0-3)
== END 2022-11-11 11:00 | disposition home or self-care (01) ==
LOC: UTC 08:54 → ER 09:44
PROVIDERS: Nurse Practitioner Family; Emergency Provider Emergency Medicine; PCP Internal Medicine Adolescent Medicine
DX: R10.11 Right upper quadrant pain (principal); K22.70 Barrett's esophagus without dysplasia; E11.9 Type 2 diabetes mellitus without complications; N40.0 Benign prostatic hyperplasia without lower urinary tract symptoms; I10 Essential (primary) hypertension; E78.5 Hyperlipidemia, unspecified
CPT/HCPCS: 76705; 80053; 81001; 83690; 85025; 96360; 99283; 99284

== ENCOUNTER → 2023-01-09 08:35 | Outpatient (CLI) | payer BC, SELFPAY ==
--- NOTE | 2023-01-09 09:13 | NM_ITS ---
FINAL REPORT CLINICAL HISTORY: GB SLUDGE rt side abd pain under ribs x 3 weeks with nausea 9:25 am 8.21 [facility] tc choletec 2 mcg of cck pain during cck FINDINGS: Sequential anterior projection images of the abdomen were obtained after the intravenous injection of 5.0 mCi technetium 99m Choletec. There is normal uptake of radiotracer by the liver. The bile ducts are visualized by 5 minutes. Gallbladder activity is seen by 30 minutes. Bowel activity is noted by 10 minutes. After 1 hour, 8.21 ?g of CCK was injected intravenously for calculation of gallbladder ejection fraction. The gallbladder ejection fraction is 70%, which is within normal limits. IMPRESSION: No evidence of cystic duct or bile duct obstruction. Normal gallbladder ejection fraction of 70%. Reviewed, Interpreted and Dictated by Brooks Moscoso III, MD Transcribed by Lisbeth Irene Authenticated and [facility]
== END ==
LOC: RAD 08:35
PROVIDERS: PCP Internal Medicine Adolescent Medicine; Visit Provider Internal Medicine Adolescent Medicine
DX: K82.8 Other specified diseases of gallbladder (principal)
CPT/HCPCS: 78227; A9537; J2805

== ENCOUNTER 2023-12-22 09:27 | Emergency (ER) | payer BC, SELFPAY ==
[2023-12-22 09:45] VITALS: BP 143/89; PULSE 89; RESP 19; TEMP 36.6; O2SAT 96; BMI 34.9
--- NOTE | 2023-12-22 09:51 | XR_ITS ---
FINAL REPORT CLINICAL HISTORY: Left wrist pain COMPARISON: None FINDINGS: LEFT WRIST Three views demonstrate no acute fracture or dislocation. The visualized joint spaces are normally aligned. The soft tissues are unremarkable. IMPRESSION: No acute bony abnormality. Reviewed, Interpreted and Dictated by Guilherme Esquivel MD Transcribed by Jane Echevarria Authenticated and [facility]
--- NOTE | 2023-12-22 09:51 | XR_ITS ---
FINAL REPORT CLINICAL HISTORY: Left hand pain COMPARISON: None FINDINGS: LEFT HAND Three views demonstrate no acute fracture or dislocation. The visualized joint spaces are normally aligned. The soft tissues are unremarkable. IMPRESSION: No acute process. Reviewed, Interpreted and Dictated by Guilherme Esquivel MD Transcribed by Jane Echevarria Authenticated and [facility]
--- NOTE | 2023-12-22 10:00 | EXP.UTC ---
Discharge Plan Disposition Patient Disposition: Home, Self-Care Condition: Good Prescriptions Prescriptions: No Action atorvastatin 10 mg tablet 10 mg PO DAILY Patient Comments: TAKE 1 TABLET BY MOUTH ONCE DAILY omeprazole 20 mg capsule,delayed release(DR/EC) 20 mg PO DAILY Patient Comments: TAKE 1 CAPSULE BY MOUTH TWICE DAILY FOR 90 DAYS lisinopril-hydrochlorothiazide 20-25 mg tablet 1 tab PO DAILY Patient Comments: TAKE 1 TABLET BY MOUTH ONCE DAILY FOR 90 DAYS dapagliflozin propanediol [Farxiga] 10 mg tablet 10 mg PO DAILY Patient Comments: TAKE 1 TABLET BY MOUTH ONCE DAILY Referrals Follow up/Referrals: Ziggy Cheek MD [Primary Care Provider] - See instructions Activity Restrictions/Add. Instructions Additional Instructions/Restrictions: He left after being seen by provider. He refused to wait for x-rays to be read. Clinical Impressions Clinical Impression: Patient left after triage Print Language Print Language: [place] Islander Discharge ED Provider: Jens Juarez [facility] [place] General Stated complaint: ao 12/13, left wrist pain Time Seen by Provider: 12/22/23 09:59 History of Present Illness Provider Complaint: He states that he has had left wrist and forearm pain, tenderness, and swelling since he fell 1 week ago. He denies any other injury. Related Data Home Medications ?Medication ?Instructions ?Recorded ?Confirmed atorvastatin 10 mg tablet 10 mg PO DAILY 12/22/23 12/22/23 dapagliflozin propanediol 10 mg 10 mg PO DAILY 12/22/23 12/22/23 tablet (Farxiga) lisinopril 20 1 tab PO DAILY 12/22/23 12/22/23 mg-hydrochlorothiazide 25 mg tablet omeprazole 20 mg capsule,delayed 20 mg PO DAILY 12/22/23 12/22/23 release Allergies Allergy/AdvReac Type Severity Reaction Status Date / Time No Known Allergies Allergy Verified 05/16/22 09:46 [facility] Disclaimer: The information contained in this section may have been updated after the patient was seen, as this information can be updated by other users. Medical History Gauthier esophagus Diabetes mellitus Diabetes mellitus, type 2 Enlarged prostate Hemorrhoid History of back pain History of gastroesophageal reflux (GERD) HTN (hypertension) Hyperlipidemia Normal colonoscopy Scarring of lung Surgical History H/O hernia repair S/P shoulder surgery Family History Father Diabetes Hyperlipidemia Cancer Hypertension Grandfather Family history of prostate cancer Mother Family history of breast cancer Family/Other Family history of breast cancer Social History Smoking Status: Never smoker second hand exposure: No alcohol intake: never substance use type: denies use current occupational status: employed Travel in the last 8 weeks: None household members: family housing: house lives independently: Yes marital status: special robin needs: No agree to transfusion: No do you feel safe at home: Yes victim of physical abuse: No victim of emotional abuse: No victim of sexual abuse: No would you like helpful sources: No ROS Obtained: Yes All systems reviewed & no additional complaints except as documented Constitutional Constitutional: Denies chills and Denies fever(s) Eyes Eyes: Denies eye discharge ENT Ears, Nose, Mouth, and Throat: Denies dizziness, Denies otalgia and Denies sore throat Cardiovascular Cardiovascular: Denies chest pain Respiratory Respiratory: Denies shortness of breath, Denies chest congestion, Denies cough, Denies stridor and Denies wheezing Gastrointestinal Gastrointestingal: Denies nausea or vomiting Musculoskeletal Musculoskeletal: Reports as per HPI Integumentary/Breasts Skin/Breast: Denies redness, Denies rash and Denies wounds Neurologic Neurologic: Denies dizziness and Denies paresthesias Allergic/Immunologic Allergic/Immunologic: Denies wheezing Physical Exam General General appearance: alert and in no apparent distress Head Head exam: atraumatic, normocephalic and normal inspection Eye Eye exam: Present normal appearance, PERRL and EOMI ENT ENT exam: Present normal exam, normal oropharynx, mucous membranes moist, TM's normal bilaterally and normal external ear exam Neck Neck exam: Present normal inspection, full ROM and trachea midline; Absent meningismus or lymphadenopathy Chest Chest inspection: Present normal inspection and symmetric chest wall rise; Absent tenderness Respiratory Respiratory exam: Present normal lung sounds bilaterally; Absent respiratory distress Cardiovascular Cardiovascular exam: Present regular rate and normal rhythm; Absent JVD Abdominal Exam Abdominal exam: Present soft and normal bowel sounds; Absent distention, tenderness or guarding Extremities Exam Extremities exam: Present normal capillary refill; Absent calf tenderness Expanded Upper Extremity Exam Left: Elbow exam: Present normal inspection and full ROM; Absent tenderness, swelling, abrasion, laceration, ecchymosis, deformity, crepitus, dislocation, erythema, effusion, pain w/ pronation/supination or tenderness over radial head Forearm/Wrist exam: Present full ROM, tenderness and swelling; Absent abrasion, laceration, ecchymosis, deformity, crepitus, dislocation, erythema, tenderness over anatomical snuff box or pain with axial thumb loading Hand exam: Present full ROM and tenderness; Absent swelling, abrasion, laceration, skin avulsion, ecchymosis, deformity, crepitus, dislocation, erythema, amputation, nail avulsion or subungual hematoma Neuromotor exam: Normal wrist extension, thumb opposition, thumb IP flexion, thumb adduction and fingers 2-5 abduction Neurosensory exam: Normal radial nerve, ulnar nerve and median nerve Vascular exam: Normal capillary refill, radial pulse and ulnar pulse Back Exam Back exam: Present normal inspection; Absent tenderness Neurological Exam Neurological exam: Present alert and oriented X3 Psychiatric Psychiatric exam: Present normal affect and normal mood Skin Skin exam: Present warm, dry, intact and normal color Lymphatic Lymphatic Findings: no adenopathy Medical Decision Making Medical Records Medical records reviewed: No I reviewed the patient's medical records. Abhay Inquiry Pt receiving controlled substance: No Orders (Tests/Meds): ORDERS Category Date Time Status Hand XR left minimum 3 views [XR hand LT min 3V] Stat Exams 12/22/23 09:51 Ordered XR wrist LT min 3V Stat Exams 12/22/23 09:51 Ordered Radiology Data #1: Image(s): Wrist Image Reviewed: Yes I reviewed the patient's radiology image and Yes I have reviewed radiologist's interpretation Preliminary Findings: No Fracture Seen [address] [facility] [address] [place] [address] XRay Report Signed Patient: Myles Cleveland MR#: [id number] : 1975 Acct:[id number] Age/Sex: 48 / M ADM Date: 12/22/23 Loc: [facility] Attending Dr: Ordering Physician: Jens Juarez APRN Date of Service: 12/22/23 Procedure(s): XR wrist LT min 3V Accession Number(s): [id number] cc: Ziggy Cheek MD; Guilherme Esquivel MD~ FINAL REPORT CLINICAL HISTORY: Left wrist pain COMPARISON: None FINDINGS: LEFT WRIST Three views demonstrate no acute fracture or dislocation. The visualized joint spaces are normally aligned. The soft tissues are unremarkable. IMPRESSION: No acute bony abnormality. Reviewed, Interpreted and Dictated by Guilherme Esquivel MD Transcribed by Jane Echevarria Authenticated and [facility]: Image(s): Hand Image Reviewed: Yes I reviewed the patient's radiology image and Yes I have reviewed radiologist's interpretation Preliminary Findings: No Fracture Seen [address] [facility] [address] [place] [address] XRay Report Signed Patient: Myles Cleveland MR#: [id number] : 1975 Acct:[id number] Age/Sex: 48 / M ADM Date: 12/22/23 Loc: [facility] Attending Dr: Ordering Physician: Jens Juarez APRN Date of Service: 12/22/23 Procedure(s): XR hand LT min 3V Accession Number(s): [id number] cc: Ziggy Cheek MD; Guilherme Esquivel MD~ FINAL REPORT CLINICAL HISTORY: Left hand pain COMPARISON: None FINDINGS: LEFT HAND Three views demonstrate no acute fracture or dislocation. The visualized joint spaces are normally aligned. The soft tissues are unremarkable. IMPRESSION: No acute process. Reviewed, Interpreted and Dictated by Guilherme Esquivel MD Transcribed by Jane Echevarria Authenticated and [facility]
[2023-12-22 11:00] VITALS: BP 143/89; PULSE 89; RESP 19; TEMP 36.6; O2SAT 96
--- NOTE | 2023-12-22 11:00 | PC.NURSE ---
PATIENT LEFT WITHOUT BEING SEEN AT THIS TIME. PATIENT VERBALIZED FRUSTRATION ABOUT X-RAY RESULTS TAKING TOO LONG
== END 2023-12-22 11:01 | disposition home or self-care (01) ==
PROVIDERS: Emergency Provider Nurse Practitioner Family; PCP Internal Medicine Adolescent Medicine
DX: M25.532 Pain in left wrist (principal); M79.632 Pain in left forearm; W19.XXXA Unspecified fall, initial encounter
CPT/HCPCS: 73110; 73130; 99212; 99213; G0463

== ENCOUNTER 2024-03-17 10:11 | Outpatient (CLI) | payer BC, SELFPAY ==
--- NOTE | 2024-03-17 10:15 | XR_ITS ---
PROCEDURE INFORMATION: Exam: XR Thoracic Spine Exam date and time: 03/17/2024 10:28 AM Age: 48 years old Clinical indication: Pain in thoracic spine; Additional info: Old injury. . Back pain TECHNIQUE: Imaging protocol: Radiologic exam of the thoracic spine. Views: 3 views. COMPARISON: CR XR LUMBAR SPINE MIN 4V 03/17/2024 10:28 AM FINDINGS: Bones/joints: 12 rib-bearing vertebral bodies. Vertebral body heights are maintained. Mild multilevel disc space narrowing. Multilevel spondylosis of the spine. Soft tissues: Unremarkable. IMPRESSION: Mild multilevel degenerative change of the spine.
--- NOTE | 2024-03-17 10:15 | XR_ITS ---
PROCEDURE INFORMATION: Exam: XR Lumbosacral Spine Exam date and time: 03/17/2024 10:28 AM Age: 48 years old Clinical indication: Low back pain TECHNIQUE: Imaging protocol: Radiologic exam of the lumbosacral spine. Views: 4 or 5 views. COMPARISON: CR XR THORACIC SPINE 3V 03/17/2024 10:28 AM FINDINGS: Bones/joints: Five lumbar-type vertebral bodies. Vertebral body heights are maintained. Mild multilevel disc space narrowing. Multilevel spondylosis of the spine. Lower lumbar facet arthropathy. Soft tissues: Unremarkable. IMPRESSION: Mild multilevel degenerative change of the spine.
== END 2024-03-17 23:59 | disposition home or self-care (01) ==
LOC: RAD 10:12
PROVIDERS: PCP Internal Medicine Adolescent Medicine; Visit Provider Internal Medicine Adolescent Medicine
DX: M54.50 Low back pain, unspecified (principal)
CPT/HCPCS: 72072; 72110

== ENCOUNTER 2025-01-05 09:20 | Outpatient (CLI) | payer BC, SELFPAY ==
--- OUTSIDE RECORDS SUMMARY | 2011-04-08 08:00 | XMS_ITS | Continuity of Care Document ---
Author Organization [facility] o Address [address] [place] [address] Phone Care Team Providers Care Sales Leader Name Role Phone Janina TOBIAS, Jayesh Unavailable Unavailable Procedures Procedure Date Office/outpatient visit,[facility] 2010 Advance Directives Directive Yes / No Effective Date File Name No Information Encounters Encounter Description Practice Location Reason(s) For Visit Diagnoses Date Provider Providers Copied on Encounter [facility] [address], [place], [facility], tel:[phone] 00 [facility] No Information Dec-0 1 Janina Jayesh. [address] [place], [place], [id number] . [phone] Office/outpat ient visit,[facility], [facility] [place], [address], tel:[phone] [facility] No Information Dec-0 1 Janina Jayesh. [address] [place], [place], [id number] . tel:[phone] Family History Family Member Type Diagnosis Age At Onset No Information Payers Payer name Insurance type Covered libertarian ID Authoriza tiishan(s) [place] - [id number] Social History Type Description Quantity Date Captured Comments Sex Male Smoking Status No Information Chief Complaint And Reason For Visit No Information Reason For Referral Reason For Referral No Information History Of Present Illness Encounter Date Complaint History Of Prese nt Illness No Information Functional Status Date Functional Assessmen t No Information Instructions Date Instruction Additional Infor mation No Information Assessments Type Assessment Date No Information Patient Care Teams Name Effective Dates (start - stop) Status Members No Information
--- OUTSIDE RECORDS SUMMARY | 2024-11-24 05:15 | XMS_ITS ---
Author Organization [facility] Address [address] [place] [address] Care Team Providers Care Pst Supervisor Name Role Phone Ziggy Cheek Primary Care Provider REASON FOR VISIT 4 month check up Encounters Encounter Location Date Provider Diagnosis [facility] [address] [place], [place] [address] 11/24/2024 Ziggy Cheek Hypertension, essent ial I10 ; Mixed hyperlipidemia E78.2 ; Type 2 diabetes mellitus with other specified complication E11.69 and Healthcare maintenance Z00.00 Assessments Encounter Date Diagnosis (ICD Code) Assessment Notes Treatment Notes Treatment Clinical Notes Section Notes 11/24/2024 Hypertension, essential (ICD-10 - I10) 11/24/2024 Mixed hyperlipidemia (ICD-10 - E78.2) 11/24/2024 Type 2 diabetes mellitus with other specified complication (ICD-10 - E11.69) 11/24/2024 Healthcare maintenance (ICD-10 - Z00.00) Plan Of Treatment No Information Progress Notes * Myles CLEVELAND JrDOB: [birth year] (49 yo M)Acc No.[id number]:11/24/2024 Progress Notes Patient: Jigar JACKSONMyles Jr Provider: Anitra Cheek MD :1975 A ge:49 Y S ex:Male Date:11/24/2024 Address:[facility] [id number] Subjective: * Chief Complaints: * 1 . 4 month check up. * Medical History: Objective: * Vitals: Assessment: * Assessment: 1. H ypertension, essential - I10 (Primary) 2 . M ixed hyperlipidemia - E78.2 3 . T ype 2 diabetes mellitus with other specified complication - E11.69 4 . H ealthcare maintenance - Z00.00 Plan: * Treatment: * * Electronic signature of Ramsey Cheek MD FAAP on 01/05/2025 at 09:37 AM EDT Sign off status: Pending * Provider: Anitra Cheek MD Date: 0 11/24/2024 Generated for Eric elizondo/Patrice/eTchazsmitting on: 0 01/05/2025 09:37 AM EDT
--- OUTSIDE RECORDS SUMMARY | 2024-12-03 05:00 | XMS_ITS ---
Author Organization [facility] Address [address] [place] [address] Care Team Providers Care Integrated Logistics Operations Manager Name Role Phone Ziggy Cheek Primary Care Provider Results Component Value Reference Range Notes LIPID PANEL, STANDARD (7600) Reviewed date:12/07/2024 07:48:21 PM Interpretation: Performing Lab:CB, [employer] [id number], [facility] CenterWzklIS[address] Boris Gonzalez Notes/Report: NON-FASTING; NON-FASTING; NON-FASTING; NON-FASTING FASTING:YES FASTING: YES CHOLESTEROL, TOTAL 136 <200 mg/dL HDL CHOLESTEROL 33 > OR = 40 mg/dL TRIGLYCERIDES 252 <150 mg/dL If a non-fasting specimen was collected, consider repeat triglyceride testing on a fasting specimen if clinically indicated. Junito et al. J. of Clin. Lipidol. 2015;9:129-169. LDL-CHOLESTEROL 70 Reference range: <100 Desirable range <100 mg/dL for primary prevention; <70 mg/dL for patients with CHD or diabetic patients with > or = 2 CHD risk factors. LDL-C is now calculated using the Krystian-Agapito calculation, which is a validated novel method providing better accuracy than the Friedewald equation in the estimation of LDL-C. Krystian SCHULZ et al. LISA. 2013;310(19): 2775-1521 (http://education.CarePayment.com/faq/PIW848) CHOL/HDLC RATIO 4.1 <5.0 (calc) NON HDL CHOLESTEROL 103 <130 mg/dL (calc) For patients with diabetes plus 1 major ASCVD risk factor, treating to a non-HDL-C goal of <100 mg/dL (LDL-C of <70 mg/dL) is considered a therapeutic option. [facility] ([id number]) Reviewed date:12/07/2024 07:48:21 PM Interpretation: Performing Lab:CATHY [employer] [id number] [employer] [facility], [facility] HospitalCodpKD[address] Boris Gonzalez Notes/Report: NON-FASTING; NON-FASTING; NON-FASTING; NON-FASTING FASTING:YES FASTING: YES GLUCOSE 79 65-99 mg/dL Fasting reference interval UREA NITROGEN (BUN) 15 7-25 mg/dL CREATININE 0.97 0.60-1.29 mg/dL EGFR 96 > OR = 60 mL/min/1.73m2 BUN/CREATININE RATIO SEE NOTE: 6-22 (calc) Not Reported: BUN and Creatinine are within reference range. SODIUM 141 135-146 mmol/L POTASSIUM 3.4 3.5-5.3 mmol/L CHLORIDE 100 98-110 mmol/L CARBON DIOXIDE 30 20-32 mmol/L CALCIUM 9.7 8.6-10.3 mg/dL PROTEIN, TOTAL 7.2 6.1-8.1 g/dL ALBUMIN 4.8 3.6-5.1 g/dL GLOBULIN 2.4 1.9-3.7 g/dL (calc) ALBUMIN/GLOBULIN RATIO 2.0 1.0-2.5 (calc) BILIRUBIN, TOTAL 0.9 0.2-1.2 mg/dL ALKALINE PHOSPHATASE 66 36-130 U/L AST 34 10-40 U/L ALT 67 9-46 U/L CBC (INCLUDES DIFF/PLT) (639 9) Reviewed date:12/07/2024 07:48:21 PM Interpretation: Performing Lab:CATHY [employer] [id number] [employer] [facility], [facility] HospitalXjwoGX[address] Boris Gonzalez Notes/Report: NON-FASTING; NON-FASTING; NON-FASTING; NON-FASTING FASTING:YES FASTING: YES WHITE BLOOD CELL COUNT 8.9 3.8-10.8 Thousand/ uL RED BLOOD CELL COUNT 5.21 4.20-5.80 Million/uL HEMOGLOBIN 16.2 13.2-17.1 g/dL HEMATOCRIT 50.0 38.5-50.0 % MCV 96.0 80.0-100.0 fL MCH 31.1 27.0-33.0 pg MCHC 32.4 32.0-36.0 g/dL For adults, a slight decrease in the calculated MCHC value (in the range of 30 to 32 g/dL) is most likely not clinically significant; however, it should be interpreted with caution in correlation with other red cell parameters and the patient's clinical condition. RDW 12.7 11.0-15.0 % PLATELET COUNT 234 140-400 Thousand/uL MPV 11.7 7.5-12.5 fL ABSOLUTE NEUTROPHILS 5927 4553-4462 cells/uL ABSOLUTE LYMPHOCYTES 2305 850-3900 cells/uL ABSOLUTE MONOCYTES 525 200-950 cells/uL ABSOLUTE EOSINOPHILS 80 15-500 cells/uL ABSOLUTE BASOPHILS 62 0-200 cells/uL NEUTROPHILS 66.6 LYMPHOCYTES 25.9 MONOCYTES 5.9 EOSINOPHILS 0.9 BASOPHILS 0.7 HEMOGLOBIN A1c (496) Reviewed date:12/08/2024 08:36:50 AM Interpretation: Performing Lab:CB, [employer] [id number] [facility]te[facility], [facility] CenterLcoxYA[address] Boris Gonzalez Notes/Report: NON-FASTING; NON-FASTING; NON-FASTING; NON-FASTING FASTING:YES FASTING: YES HEMOGLOBIN A1c 7.9 <5.7 % For someone without known diabetes, a hemoglobin A1c value of 6.5% or greater indicates that they may have diabetes and this should be confirmed with a follow-up test. For someone with known diabetes, a value <7% indicates that their diabetes is well controlled and a value greater than or equal to 7% indicates suboptimal control. A1c targets should be individualized based on duration of diabetes, age, comorbid conditions, and other considerations. Currently, no consensus exists regarding use of hemoglobin A1c for diagnosis of diabetes for children. REASON FOR VISIT Lab Order Encounters Encounter Location Date Provider Diagnosis [facility] [address] [facility] [address] [place] [address] 12/03/2024 Ziggy Cheek Nonalcoholic fatty liver disease K76.0 ; Mixed hyperlipidemia E78.2 and Type 2 diabetes mellitus with other specified complication E11.69 Assessments Encounter Date Diagnosis (ICD Code) Assessment Notes Treatment Notes Treatment Clinical Notes Section Notes 12/03/2024 Nonalcoholic fatty liver disease (ICD-10 - K76.0) 12/03/2024 Mixed hyperlipidemia (ICD-10 - E78.2) 12/03/2024 Type 2 diabetes mellitus with other specified complication (ICD-10 - E11.69) Plan Of Treatment No Information Progress Notes * Myles CLEVELAND JrDOB: [birth year] (49 yo M)Acc No.[id number]:12/03/2024 Patient: Myles RIVERO Jr :1975 A ge:49 Y S ex:Male Address:[address] [place] [address] Subjective: * Chief Complaints: * L ab Order * Medical History: * Surgical History: * Hospitalization/Major Diagno stic Procedure: * Medications: Objective: * Vitals: * Physical Examination: Assessment: * Assessment: 1. N onalcoholic fatty liver disease - K76.0 (Primary) 2 . M ixed hyperlipidemia - E78.2 3 . T ype 2 diabetes mellitus with other specified complication - E11.69 Plan: * Treatment: Value Reference Range T RIGLYCERIDES 252 H <150 - mg/dL * C HOLESTEROL, TOTAL 136 <200 - mg/dL * H DL CHOLESTEROL 33 L > OR = 40 - mg/dL * L DL-CHOLESTEROL 70 - mg/dL (calc) * C HOL/HDLC RATIO 4.1 <5.0 - (calc) * N ON HDL CHOLESTEROL 103 <130 - mg/dL (calc) * This lab was reviewed by Hari Cheek on 12/07/2024 at 19:48 PM EDT ?LAB: COMPREHENSIVE METABOLIC PANEL (88237)* Value Reference Range G LUCOSE 79 65-99 - mg/dL * U JACKI NITROGEN (BUN) 15 7-25 - mg/dL * C REATININE 0.97 0.60-1.29 - mg/dL * B UN/CREATININE RATIO SEE NOTE: 6 - (calc) * S ODIUM 141 135-146 - mmol/L * P OTASSIUM 3.4 L 3.5-5.3 - mmol/L * C HLORIDE 100 98-110 - mmol/L * C ARBON DIOXIDE 30 20-32 - mmol/L * C ALCIUM 9.7 8.6-10.3 - mg/dL * P ROTEIN, TOTAL 7.2 6.1-8.1 - g/dL * A LBUMIN 4.8 3.6-5.1 - g/dL * G LOBULIN 2.4 1.9-3.7 - g/dL (calc ) * A LBUMIN/GLOBULIN RATIO 2.0 1.0-2.5 - (calc) * B ILIRUBIN, TOTAL 0.9 0.2-1.2 - mg/dL * A LKALINE PHOSPHATASE 66 36-130 - U/L * A ST 34 10-40 - U/L * A LT 67 H 9-46 - U/L * E GFR 96 > OR = 60 - mL/min/1 .73m2 * This lab was reviewed by Hari Cheek on 12/07/2024 at 19:48 PM EDT ?LAB: CBC (INCLUDES DIFF/PLT) (7570)* Value Reference Range W JOSE BLOOD CELL COUNT 8.9 3.8-10.8 - Thousan d/uL * R ED BLOOD CELL COUNT 5.21 4.20-5.80 - Million/ uL * H EMOGLOBIN 16.2 13.2-17.1 - g/dL * H EMATOCRIT 50.0 38.5-50.0 - % * M CV 96.0 80.0-100.0 - fL * M CH 31.1 27.0-33.0 - pg * M CHC 32.4 32.0-36.0 - g/dL * R DW 12.7 11.0-15.0 - % * P LATELET COUNT 234 140-400 - Thousand/u L * N EUTROPHILS 66.6 - % * A BSOLUTE NEUTROPHILS 5927 7015-2280 - cells/uL * L YMPHOCYTES 25.9 - % * A BSOLUTE LYMPHOCYTES 2305 850-3900 - cells/uL * M ONOCYTES 5.9 - % * A BSOLUTE MONOCYTES 525 200-950 - cells/uL * E OSINOPHILS 0.9 - % * A BSOLUTE EOSINOPHILS 80 15-500 - cells/uL * B ASOPHILS 0.7 - % * A BSOLUTE BASOPHILS 62 0-200 - cells/uL * M PV 11.7 7.5-12.5 - fL * This lab was reviewed by Hari Cheek on 12/07/2024 at 19:48 PM EDT ?LAB: HEMOGLOBIN A1c (496)* This lab was reviewed by Hari Cheek on 12/07/2024 at 19:48 PM EDT 2.?Mixed hyperlipidemia?LAB: LIPID PANEL, STANDARD (7600)* Value Reference Range T RIGLYCERIDES 252 H <150 - mg/dL * C HOLESTEROL, TOTAL 136 <200 - mg/dL * H DL CHOLESTEROL 33 L > OR = 40 - mg/dL * L DL-CHOLESTEROL 70 - mg/dL (calc) * C HOL/HDLC RATIO 4.1 <5.0 - (calc) * N ON HDL CHOLESTEROL 103 <130 - mg/dL (calc) * This lab was reviewed by Hari Cheek on 12/07/2024 at 19:48 PM EDT ?LAB: COMPREHENSIVE METABOLIC PANEL (32161)* Value Reference Range G LUCOSE 79 65-99 - mg/dL * U JACKI NITROGEN (BUN) 15 7-25 - mg/dL * C REATININE 0.97 0.60-1.29 - mg/dL * B UN/CREATININE RATIO SEE NOTE: 6-22 - (calc) * S ODIUM 141 135-146 - mmol/L * P OTASSIUM 3.4 L 3.5-5.3 - mmol/L * C HLORIDE 100 98-110 - mmol/L * C ARBON DIOXIDE 30 20-32 - mmol/L * C ALCIUM 9.7 8.6-10.3 - mg/dL * P ROTEIN, TOTAL 7.2 6.1-8.1 - g/dL * A LBUMIN 4.8 3.6-5.1 - g/dL * G LOBULIN 2.4 1.9-3.7 - g/dL (calc ) * A LBUMIN/GLOBULIN RATIO 2.0 1.0-2.5 - (calc) * B ILIRUBIN, TOTAL 0.9 0.2-1.2 - mg/dL * A LKALINE PHOSPHATASE 66 36-130 - U/L * A ST 34 10-40 - U/L * A LT 67 H 9-46 - U/L * E GFR 96 > OR = 60 - mL/min/1 .73m2 * This lab was reviewed by Hari Cheek on 12/07/2024 at 19:48 PM EDT ?LAB: CBC (INCLUDES DIFF/PLT) (4067)* Value Reference Range W JOSE BLOOD CELL COUNT 8.9 3.8-10.8 - Thousan d/uL * R ED BLOOD CELL COUNT 5.21 4.20-5.80 - Million/ uL * H EMOGLOBIN 16.2 13.2-17.1 - g/dL * H EMATOCRIT 50.0 38.5-50.0 - % * M CV 96.0 80.0-100.0 - fL * M CH 31.1 27.0-33.0 - pg * M CHC 32.4 32.0-36.0 - g/dL * R DW 12.7 11.0-15.0 - % * P LATELET COUNT 234 140-400 - Thousand/u L * N EUTROPHILS 66.6 - % * A BSOLUTE NEUTROPHILS 5927 8069-7213 - cells/uL * L YMPHOCYTES 25.9 - % * A BSOLUTE LYMPHOCYTES 2305 850-3900 - cells/uL * M ONOCYTES 5.9 - % * A BSOLUTE MONOCYTES 525 200-950 - cells/uL * E OSINOPHILS 0.9 - % * A BSOLUTE EOSINOPHILS 80 15-500 - cells/uL * B ASOPHILS 0.7 - % * A BSOLUTE BASOPHILS 62 0-200 - cells/uL * M PV 11.7 7.5-12.5 - fL * This lab was reviewed by Hari Cheek on 12/07/2024 at 19:48 PM EDT ?LAB: HEMOGLOBIN A1c (496)* This lab was reviewed by Hari Cheek on 12/07/2024 at 19:48 PM EDT 3.?Type 2 diabetes mellitus with other specified complication?LAB: LIPID PANEL, STANDARD (6110)* Value Reference Range T RIGLYCERIDES 252 H <150 - mg/dL * C HOLESTEROL, TOTAL 136 <200 - mg/dL * H DL CHOLESTEROL 33 L > OR = 40 - mg/dL * L DL-CHOLESTEROL 70 - mg/dL (calc) * C HOL/HDLC RATIO 4.1 <5.0 - (calc) * N ON HDL CHOLESTEROL 103 <130 - mg/dL (calc) * This lab was reviewed by Hari Cheek on 12/07/2024 at 19:48 PM EDT ?LAB: COMPREHENSIVE METABOLIC PANEL (68633)* Value Reference Range G LUCOSE 79 65-99 - mg/dL * U JACKI NITROGEN (BUN) 15 7-25 - mg/dL * C REATININE 0.97 0.60-1.29 - mg/dL * B UN/CREATININE RATIO SEE NOTE: 6-22 - (calc) * S ODIUM 141 135-146 - mmol/L * P OTASSIUM 3.4 L 3.5-5.3 - mmol/L * C HLORIDE 100 98-110 - mmol/L * C ARBON DIOXIDE 30 20-32 - mmol/L * C ALCIUM 9.7 8.6-10.3 - mg/dL * P ROTEIN, TOTAL 7.2 6.1-8.1 - g/dL * A LBUMIN 4.8 3.6-5.1 - g/dL * G LOBULIN 2.4 1.9-3.7 - g/dL (calc ) * A LBUMIN/GLOBULIN RATIO 2.0 1.0-2.5 - (calc) * B ILIRUBIN, TOTAL 0.9 0.2-1.2 - mg/dL * A LKALINE PHOSPHATASE 66 36-130 - U/L * A ST 34 10-40 - U/L * A LT 67 H 9-46 - U/L * E GFR 96 > OR = 60 - mL/min/1 .73m2 * This lab was reviewed by Hari Cheek on 12/07/2024 at 19:48 PM EDT ?LAB: CBC (INCLUDES DIFF/PLT) (7659)* Value Reference Range W JOSE BLOOD CELL COUNT 8.9 3.8-10.8 - Thousan d/uL * R ED BLOOD CELL COUNT 5.21 4.20-5.80 - Million/ uL * H EMOGLOBIN 16.2 13.2-17.1 - g/dL * H EMATOCRIT 50.0 38.5-50.0 - % * M CV 96.0 80.0-100.0 - fL * M CH 31.1 27.0-33.0 - pg * M CHC 32.4 32.0-36.0 - g/dL * R DW 12.7 11.0-15.0 - % * P LATELET COUNT 234 140-400 - Thousand/u L * N EUTROPHILS 66.6 - % * A BSOLUTE NEUTROPHILS 5927 2490-2049 - cells/uL * L YMPHOCYTES 25.9 - % * A BSOLUTE LYMPHOCYTES 2305 850-3900 - cells/uL * M ONOCYTES 5.9 - % * A BSOLUTE MONOCYTES 525 200-950 - cells/uL * E OSINOPHILS 0.9 - % * A BSOLUTE EOSINOPHILS 80 15-500 - cells/uL * B ASOPHILS 0.7 - % * A BSOLUTE BASOPHILS 62 0-200 - cells/uL * M PV 11.7 7.5-12.5 - fL * This lab was reviewed by Hari Cheek on 12/07/2024 at 19:48 PM EDT ?LAB: HEMOGLOBIN A1c (496)* This lab was reviewed by Hari Cheek on 12/07/2024 at 19:48 PM EDT * Procedure Codes: * true * Date: Generated for Eric elizondo/Patrice/Sukhi on: 0 01/05/2025 09:37 AM EDT
--- OUTSIDE RECORDS SUMMARY | 2024-12-06 04:00 | XMS_ITS ---
Author Organization [facility] Address [address] [place] [address] Care Team Providers Care Educational Speech Language Clinician Name Role Phone Ziggy Cheek Primary Care Provider REASON FOR VISIT blood draw Encounters Encounter Location Date Provider Diagnosis [facility] [address] [place] [address] 12/06/2024 Ziggy Cheek Plan Of Treatment No Information Progress Notes * Myles CLEVELAND JrDOB: [birth year] (49 yo M)Acc No.[id number]:12/06/2024 LABS Patient: Michael RIVEROanai Johnson Provider: Anitra Cheek MD :1975 A ge:49 Y S ex:Male Date:12/06/2024 Address:[address] [place], [place] [address]ARDMICHANDRACOMMUN[id number] Subjective: * Chief Complaints: * 1 . Blood draw. * Medical History: Objective: * Vitals: Assessment: Plan: * Treatment: * * Electronic signature of Ramsey Cheek MD FAAP on 01/05/2025 at 09:36 AM EDT Sign off status: Pending * Provider: Anitra Cheek MD Date: 12/06/2024 Generated for Printi ng/Faxing/eTransmitting on: 01/05/2025 09:36 AM EDT
--- OUTSIDE RECORDS SUMMARY | 2024-12-08 05:15 | XMS_ITS ---
Author Organization [facility] Address [address] [place] [address] Care Team Providers Care Lead Caster Name Role Phone Ziggy Cheek Primary Care Provider [phone] Allergies No Known Allergies REASON FOR VISIT 4 month check up-discuss labs, still having numbness on lt side and dizzy spells, did not get Farxiga-it was too expensive so he is back on Metformin Medications Medication SIG (Take, Route, Frequency, Duration) Notes Start Date End Date Status Omeprazole 20 MG Take 1 capsule by onel cleveland twice daily; Duration: 90 Active Escitalopram Oxalate 10 MG 1 tablet Oral ly Once a day; Duration: 90 days 12/08/2024 Active Glimepiride 2 MG 1 tab(s) orally once a day; Duration: 90 days Active Aspirin 81 MG 1 tablet Orally Once a day; Duration: 90 days 12/08/2024 Active Atorvastatin Calcium 10 MG 1 tab(s) oral ly once a day; Duration: 30 day(s) Active metFORMIN HCl 500 MG 1 tablet with a blanka l Orally Once a day Active Lisinopril 20 MG 1 tablet Orally Once a day; Duration: 90 days 12/08/2024 Active Problems Problem Type SNOMED Code ICD Code Onset Dates Problem Status W/U Status Risk Notes Problem Generalized anxiety disorder (75174542) FREDERICK (generalized anxiety disorder) (F41.1) Active confirmed Problem Left hemiplegia (011422272) Left hemiplegia (G81.94) Active confirmed Vital Signs Temperature 97.6 degrees Fahrenheit 12/09/19 25 Heart Rate 100 /min 12/08/2024 Blood pressure systolic 102 mm Hg 12/09/19 25 Blood pressure diastolic 80 mm Hg 025 Height 5 ft 6 in in 12/08/2024 Weight 225.2 lbs 12/08/2024 BMI 36.34 kg/m2 12/08/2024 Encounters Encounter Location Date Provider Diagnosis [facility] [address] [place], [place] [address] 12/08/2024 Ziggy Cheek Left-sided muscle weakness M62.81 ; Left hemiplegia G81.94 ; FREDERICK (generalized anxiety disorder) F41.1 ; Hypokalemia E87.6 and Type 2 diabetes mellitus with other specified complication E11.69 Assessments Encounter Date Diagnosis (ICD Code) Assessment Notes Treatment Notes Treatment Clinical Notes Section Notes 12/08/2024 Left-sided muscle weakness (ICD-10 - M62.81) 12/08/2024 Left hemiplegia (ICD-10 - G81.94) Generalized left sided weakness + Left sided sensory loss, concerning for internal capsule stroke. - Reviewed MRI + hospital records which show etasia of L verterbral artery causing compression of Left brain stem. -will order repeat MRI + MRA Head to r/o stroke + worsening brainstem compression + Verterbral Artery stenosis -will start ASA 81 mg today -also has hypotension today -> will stop HCTZ 12/08/2024 FREDERICK (generalized anxiety disorder) (ICD-10 - F41.1) will start lexapro 10 mg today for mood disorder, likely FREDERICK vs MDD 12/08/2024 Hypokalemia (ICD-10 - E87.6) will stop HCTZ and repeat leabs in 4 week 12/08/2024 Type 2 diabetes mellitus with other specified complication (ICD-10 - E11.69) Reviewed labs collect. Elevated A1c to 7.9. Was unable to get Farxiga due to cost (1600 per month), will switch to anothe SGLT2i 12/08/2024 Other Please note this visit was of very high complexity. Reviewed labs from last week that we ordered in preparation for visit, made multiple medication changes, reviewed previous records from [facility], ordered complex neuroimaging and this will require follow-up and further complexity. Plan Of Treatment Medication Medication Name Sig Start Date Stop Date Notes Escitalopram Oxalate 10 MG 1 tablet Oral ly Once a day; Duration: 90 days 12/08/2024 Aspirin 81 MG 1 tablet Orally Once a day; Duration: 90 days 12/08/2024 Lisinopril 20 MG 1 tablet Orally Once a day; Duration: 90 days 12/08/2024 Lisinopril-hydroCHLOROthiazi de 20-25 MG 1/2 tab orally once a day Treatment Notes Assessment Notes Left hemiplegia Generalized left sided weakness + Left sided sensory loss, concerning for internal capsule stroke. - Reviewed MRI + hospital records which show etasia of L verterbral artery causing compression of Left brain stem. -will order repeat MRI + MRA Head to r/o stroke + worsening brainstem compression + Verterbral Artery stenosis -will start ASA 81 mg today -also has hypotension today -> will stop HCTZ FREDERICK (generalized anxiety disorder) will start lexapro 10 mg today for mood disorder, likely FREDERICK vs MDD Hypokalemia will stop HCTZ and r epeat leabs in 4 week Type 2 diabetes mellitus wit h other specified complication Reviewed labs collect. Elevated A1c to 7.9. Was unable to get Farxiga due to cost (1600 per month), will switch to anothe SGLT2i Other Please note this visit was of very high complexity. Reviewed labs from last week that we ordered in preparation for visit, made multiple medication changes, reviewed previous records from [facility], ordered complex neuroimaging and this will require follow-up and further complexity. Pending Test Test Name Order Date MRI : Head 12/08/2024 MRA : Head 12/08/2024 MRV : Head 12/08/2024 Next Appt Details Follow Up: prn,4 Weeks, Reas on: Progress Notes * Myles CLEVELAND JrDOB: [birth year] (49 yo M)Acc No.[id number]:12/08/2024 Progress Notes Patient: Jigar Myles [place] Jr Provider: Anitra Cheek MD :1975 A ge:49 Y S ex:Male Date:12/08/2024 Address:[address] [place] [address] Subjective: * Chief Complaints: * 1 . 4 month check up-discuss labs. 2. Still having numbness on lt side and dizzy spells. 3. did not get Farxiga-it was too expensive so he is back on Metformin. * HPI: mishel dye: Still having dizzy spells, no change, when he gets nervous/overwork ->anxiety, struggles to stay asleep, thinks about work when hes up, not much of an appetitie, doesnt have anything he enjoys doing, Holding left arm, weak, fingers + hand goes numb, left side weaker for the past months, f alls to the left, struggle with speech/speling words, eye twitching in left side, left face weaker, decreased sensation on left side. Dizzy 2-3 times per day, doesnt notice inparticular when he stands up. Room spinning sensation,. * Medical History: B arrett's Esophagus, Positive Cologuard 12/24 - scope 02/23 with multiple tubular adenomas. * Surgical History: h ernia repair x 2 , left shoulder , Colonoscopy . * Hospitalization/Major Diagno stic Procedure: D enies Past Hospitalization. * Family History: F ather: , cancer, diagnosed with Cancer, Hypertension. M other: alive. P aternal Grand Father: . P aternal Grand Mother: . M aternal Grand Father: . M aternal Grand Mother: . P aternal uncle: , prostate cancer, diagnosed with Cancer. S brianna: alive, one brother ; diabetes. C chris: alive. 3 brother(s) . 1 son(s) , 2 daughter(s) - healthy. . father recently diagnosed with esophageal cancer, currently taking chemotherapy- passed. * Social History: S moking A re you a:: nonsmoker. R ecreational drug use: no. Exercise: yes. Home smoke detector use: yes. Caffeine: no. Living Will: No. Alcohol: no. Sexually active: no. Travel outside [place]: no. Occupation: [employer]. denies any ETOH or tobacco. * Medications: T aking metFORMIN HCl 500 MG Tablet 1 tablet with a meal Orally Once a day , Taking Lisinopril-hydroCHLOROthiazide 20-25 MG Tablet 1/2 tab orally once a day , Taking Atorvastatin Calcium 10 MG Tablet 1 tab(s) orally once a day , Taking Glimepiride 2 MG Tablet 1 tab(s) orally once a day , Taking Omeprazole 20 MG Capsule Delayed Release Take 1 capsule by mouth twice daily , Discontinued Meloxicam 15 MG Tablet 1 tab(s) orally once a day , Discontinued Farxiga 10 MG Tablet Take 1 tablet by mouth once daily for 90 days , Medication List reviewed and reconciled with the patient * Allergies: N .K.D.A. Objective: * Vitals: N urse: jl, Pain: 5, Temp: 97.6, RR: 18, HR: 100, BP: 102/80, Ht: 5 ft 6 in, Wt: 225.2, BMI:36.34. * Examination: G eneral Examination: General H olding Left arm, NAD, flat affect.. Heart: R egular Rate and Rhythm, no murmur, rubs or gallops. HEENT: p harynx and tonsils normal, TM's normal. Lungs: L CTAB, No wheezes, crackles or rhonchi, Good air movement,. Neurologic Exam: D ecreased strength on left side (4/5) diminished tower technician strength, upper + lower extremity, decreased nasolabial fold on left, unable to close eye as tight on left. diminished sensation on left face (V2-V3). Atrophy in L hand. Psych F lat affect. Assessment: * Assessment: 1. L eft hemiplegia - G81.94 (Primary) 2 . L eft-sided muscle weakness - M62.81 3 . G AD (generalized anxiety disorder) - F41.1 4 . H ypokalemia - E87.6 5 . T ype 2 diabetes mellitus with other specified complication - E11.69 Plan: * Treatment: ?Imaging: MRA : Head * ?Imaging: MRV : Head* Notes: Generalized left sided weakness + Left sided sensory loss, concerning for internal capsule stroke. - Reviewed MRI + hospital records which show etasia of L verterbral artery causing compression of Left brain stem. -will order repeat MRI + MRA Head to r/o stroke + worsening brainstem compression + Verterbral Artery stenosis -will start ASA 81 mg today -also has hypotension today -> will stop HCTZ??2.?Left-sided muscle weakness?Imaging: MRI : Head * ?Imaging: MRA : Head * ?Imaging: MRV : Head* 3.?FREDERICK (generalized anxiety disorder)? Start Escitalopram Oxalate Tablet, 10 MG, 1 tablet, Orally, Once a day, 90 days, 90 Tablet, Refills1.?? Notes: will start lexapro 10 mg today for mood disorder, likely FREDERICK vs MDD?? 4.?Hypokalemia? Stop Lisinopril-hydroCHLOROthiazide Tablet, 20-25 MG, 1/2 tab, orally, once a day.?? Notes: will stop HCTZ and repeat leabs in 4 week??5.?Type 2 diabetes mellitus with other specified complication? Notes: Reviewed labs collect. Elevated A1c to 7.9. Was unable to get Farxiga due to cost (1600 per month), will switch to anothe SGLT2i ??6.?Others? Notes: Please note this visit was of very high complexity. Reviewed labs from last week that we ordered in preparation for visit, made multiple medication changes, reviewed previous records from [facility], ordered complex neuroimaging and thiswill require follow-up and further complexity. ?? * Follow Up: p rn,4 Weeks * * Sign off status: Completed true * Provider: Anitra Cheek MD Date: 0 12/08/2024 Generated for Randyi mikhail/Patrice/eTransmitting on: 0 01/05/2025 09:37 AM EDT History and Physical Notes * HPI (History of Present Illness) Category Sub-Category Detail Notes Category Not es gen Still having dizzy spells, no change, when he gets nervous/overwork ->anxiety, struggles to stay asleep, thinks about work when hes up, not much of an appetitie, doesnt have anything he enjoys doing, Holding left arm, weak, fingers + hand goes numb, left side weaker for the past months, falls to the left, struggle with speech/speling words, eye twitching in left side, left face weaker, decreased sensation on left side. Dizzy 2-3 times per day, doesnt notice inparticular when he stands up. Room spinning sensation, Examination Category Sub-Category Detail Notes Category Not es General Examination HEENT: pharynx and tonsils normal, TM's normal Heart: Regular Rate and Rhy thm, no murmur, rubs or gallops Lungs: LCTAB, No wheezes, c rackles or rhonchi, Good air movement, Neurologic Exam: Decreased strength o n left side (4/5) diminished tower technician strength, upper + lower extremity, decreased nasolabial fold on left, unable to close eye as tight on left. diminished sensation on left face (V2-V3). Atrophy in L hand General Holding Left arm, NA D, flat affect. Psych Flat affect
--- NOTE | 2025-01-05 09:25 | MR_ITS ---
FINAL REPORT CLINICAL HISTORY: L HEMIPLEGIA AND L SIDED MUSCLE WEAKNESS left sided facial droop headaches, dizzy numbness & loss of strength left hand FINDINGS: Multiple projection images of the brain arterial vasculature were obtained without contrast. raw data images were also reviewed. The internal carotid arteries are patent. The middle cerebral arteries and visualized proximal branches are patent. The anterior cerebral arteries are patent. The intracranial vertebral arteries are patent. The basilar artery is patent. The posterior cerebral arteries are patent. There is no segmental stenosis or aneurysm. IMPRESSION: No significant intracranial vascular abnormality. Reviewed, Interpreted and Dictated by Guilherme Esquivel MD Transcribed by Lisbeth Irene Authenticated and [facility]
--- OUTSIDE RECORDS SUMMARY | 2025-01-05 09:36 | XMS_ITS | Clinical Summary ---
Author Organization [facility] Address [address] [place] [address] Care Team Providers Care Application Security Architect Name Role Phone Ziggy Cheek MD Primary Care Provider [phone] Allergies No known active allergies Medications metFORMIN (Glucophage) 500 MG tablet 2 (two) times a day with meals. 2 Active lisinopril 10 MG tablet 1 (one) time each day at the same time. 2 Active atorvastatin (Lipitor) 10 MG tablet 1 (one) time each day at the same time. 2 Active omeprazole OTC (PriLOSEC OTC) 20 MG EC tablet Take by mouth 1 (one) time each day. 2 Active metroNIDAZOLE (Flagyl) 500 MG tablet Take one tablet at 1pm, 2pm, and 11pm day BEFORE surgery. SSI COLON. 3 tablet 2 Active Additional Information Patient not taking.Reported on 04/18/2022 Nutritional Supplements (Impact Advanced Recovery) liquid Drink 2 cartons a day starting 5 days before surgery. SSICOLON. Auto Sub for Ensure Surgery if Impact not available. 176 mL 2 2 Active Additional Information Patient not taking.Reported on 04/18/2022 neomycin (Mycifradin) 500 MG tablet Take two tablets (1000 mg) by mouth at 1:00pm, 2:00pm and 11:00pm on the day prior to surgery. SSICOLON 6 tablet 2 Active Additional Information Patient not taking.Reported on 04/18/2022 scopolamine (Transderm-Scop) 1 MG/3DAYS patch [address] patient behind left or right ear at 8am day before surgery. SSICOLON 1 patch 2 Active Additional Information Patient not taking.Reported on 04/18/2022 lisinopril-hydro CHLOROthiazide 20-25 MG tablet Take 1 tablet by mouth 1 (one) time each day. Active bisacodyl (Bisacodyl EC) 5 MG EC tablet Take all 4 tablets at 9 AM two days before colonoscopy 4 tablet 4 Active magnesium citrate solution Drink first bottle at 6PM two days before colonoscopy , drink second bottle at 9AM on day before colonoscopy- Follow each bottle with 4 glasses of clear liquids 592 mL 4 Active polyethylene glycol (GoLYTELY) 236 g solution SEE PHARMACY NOTES FOR PATIENT LABEL INSTRUCTIONS- for Colonoscopy prep protocol 4000 mL 4 Active dapagliflozin (Farxiga) 10 MG tablet Take 1 tablet (10 mg) by mouth 1 (one) time each day. Active Active Problems Problem Noted Date Diagnosed Date HTN (hypertension) 04/18/2022 High cholesterol 04/18/2022 Depression 04/18/2022 Diabetes mellitus, type 2 04/18/2022 Gastroesophageal reflux disease 04/18/2022 Adenomatous polyp of ascending colon 03/26/2022 Overview (03/26/2022): Added automatically from request for surgery [id number] Family History Medical History Relation Name Comments Lymphoma Father Colon cancer Maternal Grandfather Prostate cancer Maternal Grandfather Diabetes Other Hypertension Other Liver disease Other Thyroid disease Other Breast cancer Paternal Grandmother Anesthesia problems Neg Hx Malig Hyperthermia Neg Hx Relation Name Status Comments Father Maternal Grandfather Other Paternal Grandmother Social History Tobacco Use Types Packs/Day Years Used Date Smoking Tobacco: Never Passive Smoke Exposure: Past Smokeless Tobacco: Never Tobacco Cessation:Counseling Given: Not Answered Alcohol Use Standard Drinks/Week Comments Never 0 (1 standard drink = 0.6 oz pur e alcohol) Sex and Gender Information Value Date Recorded Sex Assigned at Not on file Legal Sex Male 7:45 PM EDT Gender Identity Not on file Sexual Orientation Not on file Last Filed Vital Signs Vital Sign Reading Time Taken Comments Blood Pressure 104/79 05/03/2024 12:45 PM EST Pulse 82 05/03/2024 12:45 PM EST Temperature 36.2 C (97.1 F) 05/03/2024 12:25 PM EST Respiratory Rate 10 05/03/2024 12:45 PM EST Oxygen Saturation 95% 05/03/2024 12:45 PM EST Inhaled Oxygen Concentration - - Weight 97.8 kg (215 lb 9.8 oz) 05/22/2023 12:07 PM EST Height 170.2 cm (5' 7 ) 05/22/2023 12:07 PM EST Body Mass Index 33.77 05/22/2023 12:07 PM EST Plan of Treatment Health Maintenance Due Date Last Done Comments CT Colonography 1975 FIT-DNA 1975 FIT 1975 FOBT 1975 Sigmoidoscopy 1975 [facility]-Depression Screening 1975 [facility]-Diabetes: Hemoglobin A1C 1975 [facility]-HIV Screening 1975 [facility]-Hepatitis C Screening 1975 [facility]-Infant/Child/Adol SDOH Screenings 1975 Diabetes: Dental Exam 1985 [facility]- SDOH Screenings 1993 [facility]-Adult SDOH Screenings 1993 [facility]-Hepatitis B Vaccines (1 of 3 - 19+ 3-dose series) 1994 [facility]-Pneumococcal Vaccine: Pediatrics (0 to 5 Years) and At-Risk Patients (6 to 49 Years) (1 of 2 - PCV) 1994 [id number] Vaccine (3 - season) 2024 03/19/2021, 02/23/2021 [facility]-Influenza Vaccine (#1) 2025 [facility]-Zoster Vaccines (1 of 2) 2025 Colonoscopy 05/03/2027 05/03/2024, 05/22/2023, 04/18/2022 [facility]-Colorectal Cancer Screening 05/03/2027 [facility]-DTaP,Tdap,and Td Vaccine s (2 - Td or Tdap) 08/26/2033 08/27/2023 [facility]-Obesity Intervention Completed 022, 03/26/2022 HPV Vaccines Aged Out No longer eligi ble based on patient's age to complete this topic [facility]-HIB Vaccines Aged Out No longer e ligible based on patient's age to complete this topic [facility]-Hepatitis A Vaccines Aged Out No longer eligible based on patient's age to complete this topic [facility]-IPV Vaccines Aged Out No longer e ligible based on patient's age to complete this topic [facility]-Rotavirus Vaccines Aged Out No lo nger eligible based on patient's age to complete this topic Medical Devices Implanted Type Area Chief Deputy Device Identifier Shelf Expiration Date Model / Serial / Lot Duraclip 16mm - [id number] Implanted:Qty: 1 on 04/18/2022 by Johann Helm MD at [facility]-[id number] 07/12/2024 [id number] / / [id number] Duraclip 16mm - [id number] Implanted:Qty: 1 on 04/18/2022 by Johann Helm MD at [facility] End[facility]-[id number] 07/12/2024 [id number] / / [id number] Duraclip 16mm - [id number] Implanted:Qty: 1 on 05/22/2023 by Karolina Allen MD at [facility] Endosurgery-[id number] 08/23/2024 [id number] / / [id number] Procedures Procedure Name Priority Date/Time Associated Diagnosis Comments COLONOSCOPY Routine 05/03/2024 12:21 PM EST Adenomatous polyp of ascending colon from Last 3 Months or Most Recently Relevant to Health Maintenance Results * Colonoscopy (05/03/2024 12:21 PM EST) Anatomical Region Laterality Modality Endoscopy Addenda Addendum by Prabhakar Portillo MD on 05/03/2024 12:32 PM EST Table formatting from the original result was not included. Impression: The terminal ileum appeared normal. One 6 mm sessile polyp in the ascending colon; performed cold snare with complete en bloc removal and retrieved specimen Two sessile polyps measuring from 4 mm up to 8 mm in the descending colon; performed cold snare with complete en bloc removal and retrieved specimen Two sessile polyps measuring from 4 mm up to 6 mm in the sigmoid colon; performed cold snare with complete en bloc removal and retrieved specimen Small hypertrophied anal papillae observed during retroflexion; no bleeding was observed Recommendations Await pathology results Repeat colonoscopy in 3 years, due: 05/03/2027 Monitor for signs of bleeding and if any vomiting of red blood, dark blood, clots, coffee ground-like material, stool with red blood, or dark black, tarry, sticky stools present immediately to your nearest emergency department and make them aware of this procedure. Resume previous diet today Resume previous activity tomorrow Discharge home today, with escort Recommend discussion of referral to medical genetics given number and size of adenomatous polyps removed today and on previous colonoscopies. This can be discussed with your primary care provider. To date, 12 polyps have been removed here at [facility] with 7 of 7 with finalized pathology showing adenomatous polyps. Indication Personal History Adenomatous Polyps Medications See anesthesia record for anesthesia administered medications. Staff Staff Role Prabhakar Portillo MD Proceduralist Elli Mercado CRNA CRNA Heinrichs, Samuel P, RN Endo Nurse Chiquis Toscano RN Endo Nurse Jaiden Wong MD Anesthesiologist Constantine Liang MD Proceduralist Donnell Joshi Endo Piercing Artist Preprocedure A history and physical has been performed, and patient medication allergies have been reviewed. The patient's tolerance of previous anesthesia has been reviewed. The risks and benefits of the procedure and the sedation options and risks were discussed with the patient. All questions were answered and informed consent obtained. Details of the Procedure The patient underwent monitored anesthesia care, which was administered by an anesthesia professional. The patient's blood pressure, heart rate, level of consciousness, respirations and oxygen were monitored throughout the procedure. A digital rectal exam was performed. A perianal exam was performed. The scope was introduced through the anus and advanced to the terminal ileum. Retroflexion was performed in the rectum. The quality of bowel preparation was evaluated using the Keller Bowel Preparation Scale with scores of: right colon = 2, transverse colon = 2, left colon = 2. The total BBPS score was 6. Bowel prep was adequate. The patient's estimated blood loss was minimal (<5 mL). The procedure was not difficult. The patient tolerated the procedure well. There were no apparent adverse events. Attestation I was present for the entire procedure Events Procedure Events Event Event Time ENDO SCOPE IN TIME 05/03/2024 11:50 AM ENDO CECUM REACHED 05/03/2024 11:56 AM ENDO SCOPE OUT TIME 05/03/2024 12:20 PM Specimens ID Type Source Tests Collected by Time A : POLYP Tissue Ascending Colon SURGICAL PATHOLOGY EXAM Prabhakar Portillo MD 05/03/2024 1200 B : POLYP Tissue Descending Colon SURGICAL PATHOLOGY EXAM Prabhakar Portillo MD 05/03/2024 1206 C : Sigmoid colon polyp Tissue Sigmoid Colon SURGICAL PATHOLOGY EXAM Prabhakar Portillo MD 05/03/2024 1212 Findings The terminal ileum appeared normal. One 6 mm sessile polyp in the ascending colon; performed cold snare with complete en bloc removal and retrieved specimen Two sessile polyps measuring from 4 mm up to 8 mm in the descending colon; performed cold snare with complete en bloc removal and retrieved specimen Two sessile polyps measuring from 4 mm up to 6 mm in the sigmoid colon; performed cold snare with complete en bloc removal and retrieved specimen Small hypertrophied anal papillae observed during retroflexion; no bleeding was observed us Karolina Allen MD GI PROCEDURE ORDERABLES Ed ited Result - Final from Last 3 Months or Most Recently Relevant to Health Maintenance Insurance [employer] Care Teams Application Security Architect Relationship Specialty Start Date End Date Ziggy Cheek MD [address] [place] [id number] PCP - General 09/15/20
--- OUTSIDE RECORDS SUMMARY | 2025-01-05 09:36 | XMS_ITS | Clinical Summary ---
Author Organization [facility] Address [address] [place] [id number] Phone [email or web address] Care Team Providers Care Crab Picker Name Role Phone Unavailable Primary Care Provider Unavailabl e Allergies No known active allergies Medications Farxiga 10 MG tablet Take 1 tablet by mouth 1 (one) time each day. 08/25/2024 Active lisinopril-hydro CHLOROthiazide (ZESTORETIC) 20-25 MG per tablet TAKE 1/2 (ONE-HALF) TABLET BY MOUTH ONCE DAILY 08/18/2024 Active Active Problems Problem Noted Date Diagnosed Date Type 2 diabetes mellitus wit hout complication, without long-term current use of insulin 11/09/2024 Encounters Date Type Department Care Team Description 11/11/[address] [address] Bessy Gant from Last 3 Months Social History Tobacco Use Types Packs/Day Years Used Date Smoking Tobacco: Never Smokeless Tobacco: Never Tobacco Cessation:Counseling Given: Not Answered Sex and Gender Information Value Date Recorded Sex Assigned at Not on file Legal Sex Male 5:52 AM CDT Gender Identity Not on file Sexual Orientation Not on file Last Filed Vital Signs Vital Sign Reading Time Taken Comments Blood Pressure 122/84 11/09/2024 3:52 PM EDT Pulse 100 11/09/2024 3:52 PM EDT Temperature 36.5 C (97.7 F) 11/09/2024 3:52 PM EDT Respiratory Rate 14 11/09/2024 3:52 PM EDT Oxygen Saturation 96% 11/09/2024 3:52 PM EDT Inhaled Oxygen Concentration - - Weight 101 kg (221 lb 12.8 oz) 11/09/2024 3:52 P M EDT Height 169.5 cm (5' 6.75 ) 11/09/2024 3:52 PM ED T Body Mass Index 35 11/09/2024 3:52 PM EDT Plan of Treatment Health Maintenance Due Date Last Done Comments CT Colonography 1975 Colonoscopy 1975 Colorectal Cancer Screening Combo 1975 DNA Cologuard 1975 Dental Cleaning/Exam 1975 FIT or FOBT Test 1975 HIV Screening 1975 Hepatitis C Screening 1975 Sigmoidoscopy 1975 Diabetic Comprehensive Foot Exam 1985 Diabetic Kidney Health Eval (eGFR & Alb/CR ratio urine) 1985 Diabetic Retinal Eye Exam 1985 Hemoglobin A1C Testing 1985 Hep B Infection Screening - Triple Screen 1993 Hepatitis B Immunization (1 of 3 - 19+ 3-dose series) 1994 Pneumococcal: Ped (0 to 5 Yr s) and At-Risk Member (6 to 64 Yrs) (1 of 2 - PCV) 1994 Covid-19 Immunization (3 - season) 2024 03/19/2021, 02/23/2021 Influenza Immunization (#1) 2025 Annual Preventive Exam 11/09/2025 11/09/2024 Tetanus Diphtheria and Pertussis Immunization (2 - Td or Tdap) 08/26/2033 08/27/2023 HIB Immunization Aged Out No longer e ligible based on patient's age to complete this topic HPV Immunization Aged Out No longer e ligible based on patient's age to complete this topic Hepatitis A Immunization Aged Out No longer eligible based on patient's age to complete this topic Polio Immunization Aged Out No longer eligible based on patient's age to complete this topic Procedures Procedure Name Priority Date/Time Associated Diagnosis Comments SPIROMETRY WITHOUT BRONCHODILATOR Routine 11/09/2024 4:44 PM EDT Pre-employment examination from Last 3 Months Results * Spirometry, Complete CPT 93177 (11/09/2024 4:44 PM EDT) FVC 4.48 liters Comment:101% FEV1 3.75 liters Comment:108% Tana Perez [employer] PFT ORDERABLES Final Result from Last 3 Months
--- OUTSIDE RECORDS SUMMARY | 2025-01-05 09:36 | XMS_ITS | Encounter Summary ---
Author Organization [facility] Address [address] [place], [place] [id number] Phone [email or web address] Providers Care Door Builder Name Role Phone Unavailable Primary Care Provider Unavailabl e Encounter Details Date Type Department Care Team (Late st Contact Info) Description 11/11/2024 Documentation [facility] [place] [facility] [id number] [facility] [address] [place] [address] Bessy Gant [address] [place] [address] Social History Tobacco Use Types Packs/Day Years Used Date Smoking Tobacco: Never Smokeless Tobacco: Never Sex and Gender Information Value Date Recorded Sex Assigned at Not on file Legal Sex Male 5:52 AM CDT Gender Identity Not on file Sexual Orientation Not on file documented as of this encounter Progress Notes * Bessy Gant - 11/11/2024 11:19 AM EDT PC to applicant regarding work history. He states he is currently working at [employer] in [place]. 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 Prior to that he worked at [email or web address]. Asked about last A1-c. He states it was 6.4 documented in this encounter Plan of Treatment Not on file documented as of this encounter Visit Diagnoses Not on filedocumented in this encounter
--- OUTSIDE RECORDS SUMMARY | 2025-01-05 09:37 | XMS_ITS | Patient Health Record ---
Author Organization [facility] Address [address] [place] [address] Care Team Providers Care Chief Telephone Operator Name Role Phone Ziggy Cheek Primary Care Provider Migration, Provider Unavailable Unavailable Allergies No Known Allergies Results Component Value Reference Range Notes HEMOGLOBIN A1c (496) Reviewed date:12/08/2024 08:36:50 AM Interpretation: Performing Lab:[facility] [id number] [employer], MyEveTabUxzrMU[address] Boris Gonzalez Notes/Report: NON-FASTING; NON-FASTING; NON-FASTING; NON-FASTING [...] A1c for diagnosis of diabetes for children. CBC (INCLUDES DIFF/PLT) (639 9) Reviewed date:12/07/2024 07:48:21 PM Interpretation: Performing Lab:[facility] [id number], MyEveTabFvgwVD[address] Boris Gonzalez Notes/Report: NON-FASTING; NON-FASTING; NON-FASTING; NON-FASTING [...] MPV 11.7 7.5-12.5 fL ABSOLUTE NEUTROPHILS 5927 5186-3983 cells/uL ABSOLUTE LYMPHOCYTES 2305 850-3900 cells/uL ABSOLUTE MONOCYTES 525 200-950 cells/uL ABSOLUTE EOSINOPHILS 80 15-500 cells/uL ABSOLUTE BASOPHILS 62 0-200 cells/uL NEUTROPHILS 66.6 LYMPHOCYTES 25.9 MONOCYTES 5.9 EOSINOPHILS 0.9 BASOPHILS 0.7 COMPREHENSIVE METABOLIC PANE L (53510) Reviewed date:12/07/2024 07:48:21 PM Interpretation: Performing Lab:CB, [facility] Llce[address] [facility], [facility] CenterZgrjIO[address] Boris Gonzalez Notes/Report: NON-FASTING; NON-FASTING; NON-FASTING; NON-FASTING [...] 34 10-40 U/L ALT 67 9-46 U/L LIPID PANEL, STANDARD (7600) Reviewed date:12/07/2024 07:48:21 PM Interpretation: Performing Lab:[facility] [id number] [address] [facility], [facility] CenterRxruVH[address] Boris Gonzalez Notes/Report: NON-FASTING; NON-FASTING; NON-FASTING; NON-FASTING [...] factors. LDL-C is now calculated using the Krystian-Altman calculation, which is a validated novel method providing better accuracy than the Friedewald equation in the estimation of LDL-C. Krystian SS et al. LISA. 2013;310(19): 4282-5712 (http://education.Aerob.[employer]/faq/YLD306) CHOL/HDLC RATIO 4.1 <5.0 (calc) NON HDL CHOLESTEROL 103 <130 mg/dL (calc) For patients with diabetes plus 1 major ASCVD risk factor, treating to a non-HDL-C goal of <100 mg/dL (LDL-C of <70 mg/dL) is considered a therapeutic option. HEMOGLOBIN A1c (496) Reviewed date:03/16/2024 01:27:18 PM Interpretation: Performing Lab:[facility] [id number] [address] [facility], [facility] CenterZhfvVW[address] Boris Gonzalez Notes/Report: HEMOGLOBIN A1c 7.7 <5.7 % of total Hgb For someone without known diabetes, a hemoglobin [...] A1c for diagnosis of diabetes for children. CBC (INCLUDES DIFF/PLT) (639 9) Reviewed date:03/16/2024 01:27:18 PM Interpretation: Performing Lab:[facility] [id number], MyEveTabLokcXE[address] Boris Gonzalez Notes/Report: WHITE BLOOD CELL COUNT 8.9 3.8-10.8 Thousand/ uL RED BLOOD CELL COUNT 5.37 4.20-5.80 Million/uL HEMOGLOBIN 16.4 13.2-17.1 g/dL HEMATOCRIT 49.4 38.5-50.0 % MCV 92.0 80.0-100.0 fL MCH 30.5 27.0-33.0 pg MCHC 33.2 32.0-36.0 g/dL For adults, a slight decrease in the calculated MCHC value (in the range of 30 to 32 g/dL) is most likely not clinically significant; however, it should be interpreted with caution in correlation with other red cell parameters and the patient's clinical condition. RDW 12.3 11.0-15.0 % PLATELET COUNT 252 140-400 Thousand/uL MPV 12.4 7.5-12.5 fL ABSOLUTE NEUTROPHILS 6150 9127-9630 cells/uL ABSOLUTE LYMPHOCYTES 2074 850-3900 cells/uL ABSOLUTE MONOCYTES 525 200-950 cells/uL ABSOLUTE EOSINOPHILS 98 15-500 cells/uL ABSOLUTE BASOPHILS 53 0-200 cells/uL NEUTROPHILS 69.1 LYMPHOCYTES 23.3 MONOCYTES 5.9 EOSINOPHILS 1.1 BASOPHILS 0.6 COMPREHENSIVE METABOLIC PANE L (20930) Reviewed date:03/16/2024 01:27:18 PM Interpretation: Performing Lab:[facility] [address], [place] LypvRX[address] Boris Gonzalez Notes/Report: GLUCOSE 133 65-99 mg/dL Fasting reference interval For someone without known diabetes, a glucose value >125 mg/dL indicates that they may have diabetes and this should be confirmed with a follow-up test. UREA NITROGEN (BUN) 14 7-25 mg/dL CREATININE 1.06 0.60-1.29 mg/dL EGFR 87 > OR = 60 mL/min/1.73m2 BUN/CREATININE RATIO SEE NOTE: 6-22 (calc) Not Reported: BUN and Creatinine are within reference range. SODIUM 141 135-146 mmol/L POTASSIUM 4.0 3.5-5.3 mmol/L CHLORIDE 101 98-110 mmol/L CARBON DIOXIDE 29 20-32 mmol/L CALCIUM 9.7 8.6-10.3 mg/dL PROTEIN, TOTAL 7.3 6.1-8.1 g/dL ALBUMIN 4.7 3.6-5.1 g/dL GLOBULIN 2.6 1.9-3.7 g/dL (calc) ALBUMIN/GLOBULIN RATIO 1.8 1.0-2.5 (calc) BILIRUBIN, TOTAL 0.7 0.2-1.2 mg/dL ALKALINE PHOSPHATASE 80 36-130 U/L AST 29 10-40 U/L ALT 54 9-46 U/L LIPID PANEL, STANDARD (7600) Reviewed date:03/16/2024 01:27:18 PM Interpretation: Performing Lab:CATHY, [facility] Nrke[address]64 [facility], Eugenio BgguHT[address] Boris Gonzalez Notes/Report: CHOLESTEROL, TOTAL 155 <200 mg/dL HDL CHOLESTEROL 39 > OR = 40 mg/dL TRIGLYCERIDES 221 <150 mg/dL If a non-fasting specimen was collected, consider repeat triglyceride testing on a fasting specimen if clinically indicated. Wild et al. J. of Clin. Lipidol. 2015;9:129-169. LDL-CHOLESTEROL 85 Reference range: <100 Desirable range <100 mg/dL for primary prevention; <70 mg/dL for patients with CHD or diabetic patients with > or = 2 CHD risk factors. LDL-C is now calculated using the Krystian-Agapito calculation, which is a validated novel method providing better accuracy than the Friedewald equation in the estimation of LDL-C. Krystian SCHULZ et al. LISA. 2013;310(19): 6146-9832 (http://education.Aerob.[employer]/faq/LAM209) CHOL/HDLC RATIO 4.0 <5.0 (calc) NON HDL CHOLESTEROL 116 <130 mg/dL (calc) For patients with diabetes plus 1 major ASCVD risk factor, treating to a non-HDL-C goal of <100 mg/dL (LDL-C of <70 mg/dL) is considered a therapeutic option. THYROID PANEL WITH TSH (7444 ) Reviewed date:03/16/2024 01:27:18 PM Interpretation: Performing Lab:[facility] [id number], SnabboteketMaxaWS[address] Boris Gonzalez Notes/Report: T3 UPTAKE 31 22-35 % T4 (THYROXINE), TOTAL 6.6 4.9-10.5 mcg/dL FREE T4 INDEX (T7) 2.0 1.4-3.8 TSH 2.23 0.40-4.50 mIU/L X ray : Spines, Lumbar Reviewed date:03/21/2024 08:49:11 PM Interpretation: Performing Lab: Notes/Report: X ray : Spines, Thoracic Spi ne Reviewed date:03/22/2024 08:04:54 AM Interpretation: Performing Lab: Notes/Report: LIPID PANEL, STANDARD (7600) Reviewed date:07/07/2024 06:31:38 PM Interpretation: Performing Lab:[facility] [id number] [address] [facility], [place] EilfHQ[address] Boris Gonzalez Notes/Report: NON-FASTING; NON-FASTING; NON-FASTING CHOLESTEROL, TOTAL 153 <200 mg/dL HDL CHOLESTEROL 35 > OR = 40 mg/dL TRIGLYCERIDES 245 <150 mg/dL If a non-fasting specimen was collected, consider repeat triglyceride testing on a fasting specimen if clinically indicated. Junito et al. J. of Clin. Lipidol. 2015;9:129-169. LDL-CHOLESTEROL 84 Reference range: <100 Desirable range <100 mg/dL for primary prevention; <70 mg/dL for patients with CHD or diabetic patients with > or = 2 CHD risk factors. LDL-C is now calculated using the Krystian-Agapito calculation, which is a validated novel method providing better accuracy than the Friedewald equation in the estimation of LDL-C. Krystian SCHULZ et al. LISA. 2013;310(19): 0492-5492 (http://education.Aerob.[employer]/faq/LMZ533) CHOL/HDLC RATIO 4.4 <5.0 (calc) NON HDL CHOLESTEROL 118 <130 mg/dL (calc) For patients with diabetes plus 1 major ASCVD risk factor, treating to a non-HDL-C goal of <100 mg/dL (LDL-C of <70 mg/dL) is considered a therapeutic option. COMPREHENSIVE METABOLIC PANE L (95904) Reviewed date:07/07/2024 06:31:38 PM Interpretation: Performing Lab:[facility] [id number], SnabboteketPjpyXL[address] Boris Gonzalez Notes/Report: NON-FASTING; NON-FASTING; NON-FASTING GLUCOSE 116 65-99 mg/dL Fasting reference interval For someone without known diabetes, a glucose value between 100 and 125 mg/dL is consistent with prediabetes and should be confirmed with a follow-up test. UREA NITROGEN (BUN) 16 7-25 mg/dL CREATININE 1.05 0.60-1.29 mg/dL EGFR 87 > OR = 60 mL/min/1.73m2 BUN/CREATININE RATIO SEE NOTE: 6-22 (calc) Not Reported: BUN and Creatinine are within reference range. SODIUM 140 135-146 mmol/L POTASSIUM 3.9 3.5-5.3 mmol/L CHLORIDE 100 98-110 mmol/L CARBON DIOXIDE 26 20-32 mmol/L CALCIUM 10.1 8.6-10.3 mg/dL PROTEIN, TOTAL 7.6 6.1-8.1 g/dL ALBUMIN 5.0 3.6-5.1 g/dL GLOBULIN 2.6 1.9-3.7 g/dL (calc) ALBUMIN/GLOBULIN RATIO 1.9 1.0-2.5 (calc) BILIRUBIN, TOTAL 0.9 0.2-1.2 mg/dL ALKALINE PHOSPHATASE 73 36-130 U/L AST 41 10-40 U/L ALT 71 9-46 U/L HEMOGLOBIN A1c (496) Reviewed date:07/07/2024 06:31:38 PM Interpretation: Performing Lab:[facility] [id number] [employer], SnabboteketJykiAD[address] Boris Gonzalez Notes/Report: NON-FASTING; NON-FASTING; NON-FASTING HEMOGLOBIN A1c 7.5 <5.7 % of total Hgb For someone without known diabetes, a hemoglobin [...] A1c for diagnosis of diabetes for children. Medications Medication SIG (Take, Route, Frequency, Duration) Notes Start Date End Date Status Atorvastatin Calcium 10 MG 1 tab(s) oral ly once a day; Duration: 30 day(s) Active metFORMIN HCl 500 MG 1 tablet with a blanka l Orally Once a day Active Lisinopril 20 MG 1 tablet Orally Once a day; Duration: 90 days 12/08/2024 Active Omeprazole 20 MG Take 1 capsule by [facility] twice daily; Duration: 90 Active Escitalopram Oxalate 10 MG 1 tablet Oral ly Once a day; Duration: 90 days 12/08/2024 Active Glimepiride 2 MG 1 tab(s) orally once a day; Duration: 90 days Active Aspirin 81 MG 1 tablet Orally Once a day; Duration: 90 days 12/08/2024 Active Immunizations Vaccine Route Administration Date Status Comme nts Boostrix IM Intramuscular 08/27/2023 Administered Tetanus Toxoid IM Intramuscular 08/21/2011 Administered Problems Problem Type SNOMED Code ICD Code Onset Dates Problem Status W/U Status Risk Notes Problem Type 2 diabetes mellitus with other specified complication (E11.69) Active confirmed Problem Mixed hyperlipidemia (708893707) Mixed hyperlipidemia (E78.2) Active confirmed Problem Chronic pain (57899830) Other chronic pain (G89.29) Active confirmed Problem Right upper quadrant pain (616453005) Right upper quadrant pain (R10.11) Active confirmed Problem Fatigue (43960734) Other fatigue (R53.83) Active confirmed Problem Hyperglycemia (47298919) Hyperglycemia (R73.9) Active confirmed Problem Essential hypertension (40584688) Hypertension, essential (I10) Active confirmed Problem Rupture of right rotator cuff (45739822947161201) Rotator cuff syndrome of right shoulder (M75.101) Active confirmed Problem Memory loss (52501777) Memory loss (R41.3) Active confirmed Problem Osteoarthritis of knee (253015252) Primary osteoarthritis of both knees (M17.0) Active confirmed Problem Urinary hesitancy (0082047) Urinary hesitancy (R39.11) Active confirmed Problem Neuropathy of upper limb (166583133) 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) Active confirmed Problem Generalized anxiety disorder (92632659) FREDERICK (generalized anxiety disorder) (F41.1) Active confirmed Problem Transient ischemic attack (418070176) TIA (transient ischemic attack) (G45.9) Active confirmed Problem Ulcer of esophagus (36164939) 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) Active confirmed Problem Nonalcoholic fatty liver disease (3719038081) Nonalcoholic fatty liver disease (K76.0) Active confirmed Problem Sciatica (30943312) Acute right- sided low back pain with right-sided sciatica (M54.41) Active confirmed Problem Irritable bowel syndrome (39476785) Irritable bowel syndrome with both constipation and diarrhea (K58.2) Active confirmed Problem Pharyngeal dysphagia (97774209503385) Pharyngeal dysphagia (R13.13) Active confirmed Problem Cerebellar ataxia (42064898) Cerebellar ataxia (G11.9) Active confirmed Problem Left hemiplegia (839835022) Left hemiplegia (G81.94) Active confirmed Problem Abnormal findings diagnostic imaging of liver and biliary tract (529164121) Abnormal gallbladder ultrasound (R93.2) Active confirmed Problem Gastroesophageal reflux disease with esophagitis (disorder) (008172591) Gastroesophageal reflux disease with esophagitis, unspecified whether hemorrhage (K21.00) Active confirmed Problem Gastroesophageal reflux disease (021150143) Gastroesophageal reflux disease, unspecified whether esophagitis present (K21.9) Active confirmed Vital Signs Heart Rate 100 /min 12/08/2024 Temperature 97.6 degrees Fahrenheit 12/08/2024 Blood pressure diastolic 80 mm Hg 12/08/2024 Height 5 ft 6 in in 12/08/2024 Blood pressure systolic 102 mm Hg 12/08/2024 Weight 225.2 lbs 12/08/2024 BMI 36.34 kg/m2 12/08/2024 Encounters Encounter Location Date Provider Diagnosis [facility] [address] [place] [address] 03/15/2024 Ziggy Cheek [facility] [address] [place] [address] 07/06/2024 Ziggykeny Cheek [facility] [address] [place] [address] 08/07/2024 Provider Migration [facility] [address] [place] [address] 12/06/2024 Ziggykeny Cheek [facility] [address] [facility] [address] [place] [address] 03/17/2024 Ziggykeny Cheek Type 2 diabetes mellitus with other specified complication E11.69 ; Mixed hyperlipidemia E78.2 ; Hypertension, essential I10 and Multifactorial low back pain M54.50 [facility] [address] [facility] [address] [place] [address] 07/21/2024 Ziggykeny Cheek Type 2 diabetes mellitus with other specified complication E11.69 ; Hypertension, essential I10 ; Nonalcoholic fatty liver disease K76.0 and Mixed hyperlipidemia E78.2 [facility] [address] [address] 09/28/2024 Ziggykeny Cheek Left-sided weakness R53.1 and Pre-syncope R55 [facility] [address] [facility] [address] [place] [address] 12/08/2024 Ziggykeny Cheek Left-sided muscle weakness M62.81 ; Left hemiplegia G81.94 ; FREDERICK (generalized anxiety disorder) F41.1 ; Hypokalemia E87.6 and Type 2 diabetes mellitus with other specified complication E11.69 [facility] [address] [place] [address] 03/15/2024 Ziggykeny Cheek Mixed hyperlipidemia E78.2 ; Type 2 diabetes mellitus with other specified complication E11.69 and Other fatigue R53.83 [facility] [address] [facility] [address] [place] [address] 03/22/2024 Ziggy Besson [facility] [address] [facility] [address] [place] [address] 07/06/2024 Ziggykeny Cheek Type 2 diabetes mellitus with other specified complication E11.69 [facility] [address] [facility] [address] [place] [address] 12/03/2024 Ziggy Cheek Nonalcoholic fatty liver disease K76.0 ; Mixed hyperlipidemia E78.2 and Type 2 diabetes mellitus with other specified complication E11.69 [facility] [address] [place] [place], [place] [address] 02/23/2024 Ziggy Cheek [facility] [address] [facility] [address] [place], [place] [address] 07/24/2024 Ziggy Cheek [facility] [address] [facility] [address] [place], [place] [address] 11/30/2024 Ziggy Cheek Assessments Encounter Date Diagnosis (ICD Code) Assessment Notes Treatment Notes Treatment Clinical Notes Section Notes 03/15/2024 Type 2 diabetes mellitus with other specified complication (ICD-10 - E11.69) 03/15/2024 Mixed hyperlipidemia (ICD-10 - E78.2) 03/17/2024 Type 2 diabetes mellitus with other specified complication (ICD-10 - E11.69) A1c was 7.7, start Glimepiride to further lower A1c. Continue use of Farxiga.Discusse d side effect profile with patient and made sure that he understood to take it with his first meal of the day and to avoid it if he is not eating 03/17/2024 Mixed hyperlipidemia (ICD-10 - E78.2) Discussed labs with patient, continue Atorvastatin 07/06/2024 Type 2 diabetes mellitus with other specified complication (ICD-10 - E11.69) 07/21/2024 Type 2 diabetes mellitus with other specified complication (ICD-10 - E11.69) A1c has gone down from 7.7 down to 7.5. Encourage patient to take glimepiride with first meal of the day regardless if this might be lunch. I think we get him closer to 7.0. 07/21/2024 Hypertension, essential (ICD-10 - I10) Good blood pressure control, no changes in plan 09/28/2024 Pre-syncope (ICD-10 - R55) -Pre-syncopal episodie in office. Multiple similar events per Pt family -HTN, HLD, reported Vert Art stenosis per Pt -6-8 weeks of sx, LNK around that time w/intermittent falls, tongue biting and RICHARDS pain (Occipital) w/pre-syncopal episode in the room. -No fevers, chills- some nausea and vomiting -Primary concern for CVA/Neoplasm w/possible associated epileptiform activity. Atypical migraines/orthos tasis, vasovagal/PNES also on DDX. Needs stat MRI, evaluaiton by Neurology w/EEG, metabolic workup. -Ambulance called for transport to [facility]. 09/28/2024 Left-sided weakness (ICD-10 - R53.1) At least 6-8 weeks of stable sx, LUE heaviness and weakness w/poor speech articulation, severe Occipital HAs. -Evaluation as below 12/03/2024 Mixed hyperlipidemia (ICD-10 - E78.2) 12/03/2024 Nonalcoholic fatty liver disease (ICD-10 - K76.0) 12/08/2024 Left hemiplegia (ICD-10 - G81.94) Generalized [...] hypotension today -> will stop HCTZ 12/08/2024 Left-sided muscle weakness (ICD-10 - M62.81) 12/08/2024 FREDERICK (generalized anxiety disorder) (ICD-10 - F41.1) will start lexapro 10 mg today for mood disorder, likely FREDERICK vs MDD 12/03/2024 Type 2 diabetes mellitus with other specified complication (ICD-10 - E11.69) 07/21/2024 Nonalcoholic fatty liver disease (ICD-10 - K76.0) Liver enzymes stable. Good news. 03/17/2024 Hypertension, essential (ICD-10 - I10) Well controlled, continue current reigmen. 03/15/2024 Other fatigue (ICD-10 - R53.83) 03/17/2024 Multifactorial low back pain (ICD-10 - M54.50) Ongoing back pain, had injuries in past. Worsening pain in thoracic and lumbar spine areas. 07/21/2024 Mixed hyperlipidemia (ICD-10 - E78.2) LDL under good control on statin. Reviewed with patient previous labs that I ordered. 12/08/2024 Hypokalemia (ICD-10 - E87.6) will stop HCTZ and repeat leabs in 4 week 12/08/2024 Type 2 diabetes mellitus with other specified complication (ICD-10 - E11.69) Reviewed labs collect. Elevated A1c to 7.9. Was unable to get Farxiga due to cost (1600 per month), will switch to anothe [id number] 09/28/2024 Other Spent over one hour in direct patient care, monitoring, calling EMS and giving reports. 12/08/2024 Other Please note this visit was of very high complexity. Reviewed labs from last week that we ordered in preparation for visit, made multiple medication changes, reviewed previous records from [facility], ordered complex neuroimaging and this will require follow-up and further complexity. Plan Of Treatment Pending Test Test Name Order Date MRI : Head 12/08/2024 X ray : Knee, Left 03/29/2014 X ray : Knee, Right 03/29/2014 N-Lipid Panel 09/09/2013 Ultrasound : Thyroid 08/21/2011 MRA : Head 12/08/2024 HIDA scan 01/01/2023 Physical Therapy 05/09/2017 CT Scan : Head, with/without contrast N-Glucose 02/28/2010 N-Glucose Tolerance Test - 4 hours 02/28 N-CBC with diff 05/25/2009 H-CMP 06/20/2015 H-LIPID PANEL 06/20/2015 H-HGBA1C 06/20/2015 H-TSH 06/20/2015 C-TESTOSTERONE 12/15/2019 M-Complete Blood Count Auto Diff 022 M-Comprehensive Metabolic Panel 04/20/20 22 M-Lipid Panel 04/20/2022 M-Thyroid Panel 04/20/2022 Comprehensive Metabolic Panel (CMP) 06/2021 Comprehensive Metabolic Panel (CMP) 07/04 Hemoglobin A1C 07/26/2021 Hemoglobin A1C 01/04/2022 Lipid Panel 07/26/2021 Physical Therapy Eval and Treat 03/17/20 24 MRV : Head 12/08/2024 Insurance Providers Payer Name Payer Address Payer Phone Subscriber Number Group Number Insured Name Patient Relationship to Insured Coverage Start Date Coverage End Date [employer] [address] [place] [address] [id number] Myles [place] Self - patient is the insured Medical (General) History Medical History History ICD Code Gauthier's Esophagus Positive Cologuard 12/24 - scope 02/23 wi th multiple tubular adenomas undefined Surgical History Surgery Date(Month/Year) hernia repair x 2 left shoulder Colonoscopy
--- OUTSIDE RECORDS SUMMARY | 2025-01-05 09:37 | XMS_ITS | Encounter Summary ---
Author Organization [facility] Address [address] [place] [address] Care Team Providers Care Refrigerating Engineer Name Role Phone Ziggy hCeek MD Primary Care Provider [phone] Reason for Referral * Consultation (Routine) - Closed Specialty Diagnoses / Procedures Referred By Contac t Referred To Contact General, Endocrine & Minimally Invasive Surgery / General Surgery Diagnoses Tubular adenoma of colon Ziggy Cheek MD [address] [place] [address] Phone: tel: fax: Referral ID Status Reason Start Date Expiration Date V isits Requested Visits Authorized [id number] Closed Specialty Services Required 02/27/2022 08/29/2023 1 1 Encounter Details Date Type Department Care Team (Late st Contact Info) Description 02/27/2022 [facility] [address] [place] [address] Ziggy Cheek MD [address] [place] [address] Tubular adenoma of colon (Primary Dx) Social History Tobacco Use Types Packs/Day Years Used Date Smoking Tobacco: Never Assessed Sex and Gender Information Value Date Recorded Sex Assigned at Not on file Legal Sex Male 7:45 PM EDT Gender Identity Not on file Sexual Orientation Not on file documented as of this encounter Plan of Treatment Scheduled Referrals Name Type Priority Associated Diagnoses Order Schedule Ambulatory Referral to General Surgery ([facility]) Outpatient Referral Routine Tubular adenoma of colon Expected: 02/27/2022 (Approximate), Expires: 08/29/2023 documented as of this encounter Visit Diagnoses Diagnosis Tubular adenoma of colon- Primary Benign neoplasm of colon documented in this encounter Care Teams Refrigerating Engineer Relationship Specialty Start Date End Date Ziggy Cheek MD [address] [place] [address] PCP - General 09/15/20 documented as of this encounter
--- OUTSIDE RECORDS SUMMARY | 2025-01-05 09:37 | XMS_ITS | Clinical Summary ---
Author Organization [facility] Address [address] [place] [address] Care Team Providers Care [employer] Name Role Phone Ziggy Cheek MD Primary Care Provider [phone] Allergies No known active allergies Medications atorvastatin (LIPITOR) 10 MG tablet Take 1 tablet by mouth Daily. Active dapagliflozin Propanediol (Farxiga) 10 MG tablet Take by mouth. Active glimepiride (AMARYL) 2 MG tablet Take 1 tablet by mouth Every Morning Before Breakfast. Active lisinopril-hydro chlorothiazide (PRINZIDE,ZESTOR ETIC) 20-25 MG per tablet Take 1 tablet by mouth Daily. Active omeprazole (priLOSEC) 20 MG capsule Take 1 capsule by mouth Daily. Active Social History Tobacco Use Types Packs/Day Years Used Date Smoking Tobacco: Never Tobacco Cessation:Counseling Given: Not Answered Alcohol Use Standard Drinks/Week Comments Never 0 (1 standard drink = 0.6 oz pur e alcohol) Abuse Screen Answer Date Recorded Feels Unsafe at Home or Work/School no 09/28/2024 Feels Threatened by Someone no 09/03 Does Anyone Try to Keep You From Having Contact with Others or Doing Things Outside Your Home? no 09/28/2024 Physical Signs of Abuse Present no 09/28/2024 Sex and Gender Information Value Date Recorded Sex Assigned at Not on file Legal Sex Male 12:48 PM EDT Gender Identity Not on file Sexual Orientation Not on file Last Filed Vital Signs Vital Sign Reading Time Taken Comments Blood Pressure 140/87 09/28/2024 8:00 PM EDT Pulse 98 09/28/2024 8:02 PM EDT Temperature 37 C (98.6 F) 09/28/2024 5:22 PM EDT Respiratory Rate 16 09/28/2024 5:22 PM EDT Oxygen Saturation 96% 09/28/2024 8:00 PM EDT Inhaled Oxygen Concentration - - Weight 99.8 kg (220 lb) 09/28/2024 5:58 PM EDT Height 170.2 cm (5' 7 ) 09/28/2024 5:58 PM EDT Body Mass Index 34.46 09/28/2024 5:58 PM EDT Plan of Treatment Health Maintenance Due Date Last Done Comments ANNUAL PHYSICAL 1975 HEPATITIS C SCREENING 1975 COLOGUARD 2020 COLON CANCER SCREENING [address] COLONOGRAPHY 2020 FECAL OCCULT BLOOD TEST 2020 FIT Testing (1 year) 2020 COVID-19 Vaccine ( season) 2024 03/19/2021, 02/23/2021 INFLUENZA VACCINE 02/02/2025 TDAP/TD VACCINES (2 - Td or Tdap) 08/26/2033 08/27/2023 COLONOSCOPY 05/03/2034 05/03/2024, 04/06, 05/22/2023, Additional history exists COLORECTAL CANCER SCREENING 05/03/2034 Pneumococcal Vaccine 0-49 Aged Out No longer eligible based on patient's age to complete this topic [place] [address] [place] [address] PPO Care Teams [employer] Technology Teacher Relationship Specialty Start Date End Date Ziggy Cheek MD [address] [place] [address] PCP - General Adolescent Medicine 09/28/24
--- OUTSIDE RECORDS SUMMARY | 2025-01-05 09:38 | XMS_ITS | Encounter Summary ---
Author Organization Healthcare Address [address] [id number] Care Team Providers Care Cell Stripper Name Role Phone Ziggy Cheek MD Primary Care Provider [phone] Encounter Details Date Type Department Care Team ([facility] st Contact Info) Description 03/22/2022 Lab Requisition [facility] [address] [place] [address] Guilherme Rutledge MD [address] [facility] [address] [place] [address] Polyp of colon Social History Tobacco Use Types Packs/Day Years Used Date Smoking Tobacco: Never Assessed Sex and Gender Information Value Date Recorded Sex Assigned at Not on file Legal Sex Male 7:45 PM EDT Gender Identity Not on file Sexual Orientation Not on file COVID-19 Exposure Response Date Recorded In the last 10 days, have yo u been in contact with someone who was confirmed or suspected to have Coronavirus/COVID-19? No / Unsure 03/25/2022 7:33 PM EST documented as of this encounter Plan of Treatment Not on file documented as of this encounter Procedures Procedure Name Priority Date/Time Associated Diagnosis Comments SURGICAL PATHOLOGY CONSULT Routine 03/22/2022 11:19 AM EST Polyp of colon documented in this encounter Results * Surgical Pathology Consult (03/22/2022 11:19 AM EST) Case Report Sugical Pathology Consult Case: [id number] Authorizing Provider: Guilherme Rutledge MD Collected: 03/22/2022 1119 Ordering Location: [facility] Received: 03/22/2022 1119 Pathologist: Skylar Padilla MD Specimen: Colon, [id number] 03/22/2022 2:37 PM EST [facility] Final Diagnosis LARGE INTESTINE, DESCENDING COLON, BIOPSY ([id number]; 02/06/2022): - TUBULAR ADENOMAS (3). LARGE INTESTINE, CECAL MASS, BIOPSY ([id number]; 02/06/2022): - FRAGMENTS OF ADENOMA (SEE COMMENT). LARGE INTESTINE, ASCENDING COLON, BIOPSY ([id number]; 02/06/2022): - TUBULAR ADENOMA. LARGE INTESTINE, SIGMOID COLON, BIOPSY ([id number]; 02/06/2022): - TUBULAR ADENOMA. 03/22/2022 2:37 PM EST [facility] at 1437 EST Comment The specimen B (cecal mass) shows evidence of adenoma. There is no evidence of high-grade dysplasia or invasive carcinoma the submitted biopsy. However, the findings may not be the medical device sales representative of the entire mass described. 03/22/2022 2:37 PM EST [facility] Clinical Information K63.5 - Polyp of colon [ICD-10-CM] 03/22/2022 2:37 PM EST [facility] Gross Description A. [id number] Received along with a corresponding pathology report from [facility] are 7 slide(s) labeled outside case: [id number] collected on 02/06/2022. 03/22/2022 2:37 PM EST [facility] Note: A resident was involved in the service. I attest I examined the relevant preparations for the specimens and confirmed the diagnosis or interpretation. 03/22/2022 2:37 PM EST [facility] Tissue Colon structure / Unknown 03/22/2022 11:19 AM EST 03/22/2022 11:19 AM EST us Guilherme Rutledge MD LAB PATHOLOGY ORDERABLES Final Result [facility] [address] [place] [address] documented in this encounter Visit Diagnoses Diagnosis Polyp of colon Benign neoplasm of colon documented in this encounter Care Teams Cell Stripper Relationship Specialty Start Date End Date Ziggy Cheek MD [address] [place], [place] [address] PCP - General 09/15/20 documented as of this encounter
== END 2025-01-05 23:59 | disposition home or self-care (01) ==
LOC: RAD 09:21
PROVIDERS: PCP Internal Medicine Adolescent Medicine; Visit Provider Internal Medicine Adolescent Medicine
DX: G81.94 Hemiplegia, unspecified affecting left nondominant side (principal); M62.81 Muscle weakness (generalized)
CPT/HCPCS: 70544